=== PATIENT | female | born 1950 | race Caucasian/White ===

== ENCOUNTER → 2016-12-08 | Outpatient (CLI) | payer BC ==
[2016-12-08 13:25] LABS: ESTIMATED AVERAGE GLUCOSE 134 mg/dl; HA1C FLAG Normal (Normal)
[2016-12-08 13:32] LABS: ALT/SGPT 23 U/L (12-78); AST/SGOT 15 U/L (15-37); BLOOD UREA NITROGEN 16 mg/dl (7-18); BUN/CREATININE RATIO 22.4 (10-20); CALCIUM 10.5 mg/dl (8.5-10.1); CARBON DIOXIDE 31 mmol/L (21-32); CHLORIDE 107 mmol/L (98-107); CHOLESTEROL 207 mg/dl (0-200); CREATININE 0.73 mg/dl (0.60-1.20); GLUCOSE 102 mg/dl (70-99); POTASSIUM 4.3 mmol/L (3.5-5.1); SODIUM 142 mmol/L (136-145)
[2016-12-08 13:34] LABS: ALB/GLOB RATIO 0.9 (0.9-2); ALKALINE PHOSPHATASE 79 U/L (45-117); CHOLESTEROL/HDL RATIO 4.1; HDL CHOLESTEROL 51 mg/dl; LDL CHOLESTEROL CALCULATED 138 mg/dl; TRIGLYCERIDES 89 mg/dl (0-150); VERY LOW DENSITY LIPOPROT CALC 18 mg/dl
== END | disposition home or self-care (01) ==
LOC: C.LABMFLN 07:30
PROVIDERS: ATTEND Family Medicine
DX: E78.00 Pure hypercholesterolemia, unspecified (principal); E11.9 Type 2 diabetes mellitus without complications

== ENCOUNTER → 2016-12-15 | Outpatient (CLI) | payer BC | END | disposition home or self-care (01) | LOC: C.PAPS 14:27 | PROVIDERS: ATTEND Family Medicine | DX: Z00.00 Encounter for general adult medical examination without abnormal findings (principal) ==

== ENCOUNTER → 2017-05-13 | Outpatient (CLI) | payer BC ==
[2017-05-13 13:59] LABS: ESTIMATED AVERAGE GLUCOSE 134 mg/dl; HA1C FLAG Normal (Normal)
[2017-05-13 14:04] LABS: RATIO 76.3 mcg/mg (0-30.0)
[2017-05-13 14:15] LABS: ALT/SGPT 21 U/L (12-78); BLOOD UREA NITROGEN 21 mg/dl (7-18); BUN/CREATININE RATIO 26.9 (10-20); CALCIUM 10.2 mg/dl (8.5-10.1); CARBON DIOXIDE 27 mmol/L (21-32); CHLORIDE 107 mmol/L (98-107); CHOLESTEROL 195 mg/dl (0-200); CREATININE 0.78 mg/dl (0.60-1.20); GLUCOSE 108 mg/dl (70-99); POTASSIUM 4.1 mmol/L (3.5-5.1); SODIUM 140 mmol/L (136-145)
[2017-05-13 14:18] LABS: ALB/GLOB RATIO 0.9 (0.9-2); ALKALINE PHOSPHATASE 95 U/L (45-117); AST/SGOT 22 U/L (15-37); HDL CHOLESTEROL 49 mg/dl; LDL CHOLESTEROL CALCULATED 129 mg/dl; TRIGLYCERIDES 83 mg/dl (0-150); VERY LOW DENSITY LIPOPROT CALC 17 mg/dl
== END | disposition home or self-care (01) ==
LOC: C.LABMFLN 07:53
PROVIDERS: ATTEND Family Medicine
DX: I10 Essential (primary) hypertension (principal); E78.00 Pure hypercholesterolemia, unspecified; E11.9 Type 2 diabetes mellitus without complications

== ENCOUNTER → 2017-06-03 | Outpatient (CLI) | payer BC ==
[2017-06-03 18:17] LABS: CREATININE 0.75 mg/dl (0.60-1.20); POTASSIUM 3.9 mmol/L (3.5-5.1)
== END | disposition home or self-care (01) ==
LOC: C.LABMFLN 11:37
PROVIDERS: ATTEND Family Medicine
DX: I10 Essential (primary) hypertension (principal)

== ENCOUNTER → 2017-06-16 | Outpatient (CLI) | payer BC ==
[2017-06-16 18:21] LABS: BLOOD UREA NITROGEN 18 mg/dl (7-18); BUN/CREATININE RATIO 21.2 (10-20); CALCIUM 10.5 mg/dl (8.5-10.1); CARBON DIOXIDE 29 mmol/L (21-32); CHLORIDE 104 mmol/L (98-107); CREATININE 0.86 mg/dl (0.60-1.20); GLUCOSE 128 mg/dl (70-99); POTASSIUM 3.9 mmol/L (3.5-5.1); SODIUM 139 mmol/L (136-145)
[2017-06-16 18:24] LABS: BASO % 0.5 %; BASO ABS # 0.05 K/uL (0-0.2); COMPLETE YES; EOS % 4.1 %; HEMATOCRIT 42.4 % (37-47); IG% 0.3 %; LYMPH % 19.5 %; LYMPH ABS # 2.02 K/uL (1.2-3.4); MEAN CELL VOLUME 96.1 fL (80-100); MEAN CORPUSCULAR HEMOGLOBIN 31.3 pg (25-34); MEAN CORPUSCULAR HGB CONC 32.5 g/dl (32-36); MEAN PLATELET VOLUME 9.8 fL (7.4-10.4); MONO % 6.9 %; NEUT % 68.7 %; PLATELET COUNT 328 K/uL (130-400); RED BLOOD COUNT 4.41 M/uL (4.2-5.4); WHITE BLOOD COUNT 10.38 K/uL (4.8-10.8)
== END | disposition home or self-care (01) ==
LOC: C.LABMFLN 14:39
PROVIDERS: ATTEND Family Medicine
DX: R23.8 Other skin changes (principal); H53.8 Other visual disturbances

== ENCOUNTER → 2017-11-09 | Outpatient (CLI) | payer BC ==
[2017-11-09 13:21] LABS: HEMOGLOBIN A1C 6.4 % (4.5-5.6)
[2017-11-09 13:57] LABS: ALBUMIN 3.5 gm/dl (3.4-5.0); ALT/SGPT 23 U/L (12-78); AST/SGOT 19 U/L (15-37); BLOOD UREA NITROGEN 17 mg/dl (7-18); CALCIUM 10.3 mg/dl (8.5-10.1); CARBON DIOXIDE 29 mmol/L (21-32); CREATININE 0.92 mg/dl (0.60-1.20); GLUCOSE 104 mg/dl (70-99); SODIUM 137 mmol/L (136-145)
[2017-11-09 14:02] LABS: ALKALINE PHOSPHATASE 85 U/L (45-117); CHOLESTEROL 191 mg/dl (0-200); LDL CHOLESTEROL CALCULATED 123 mg/dl; TOTAL PROTEIN 8.1 gm/dl (6.4-8.2)
== END | disposition home or self-care (01) ==
LOC: C.LABMFLN 08:15
PROVIDERS: ATTEND Family Medicine
DX: I10 Essential (primary) hypertension (principal); E78.00 Pure hypercholesterolemia, unspecified; E11.21 Type 2 diabetes mellitus with diabetic nephropathy

== ENCOUNTER 2022-01-21 18:43 | Inpatient (IN) ==
[2022-01-21] MEDS ORDERED: methylPREDNISolone 125 MG/2 ML VIAL IV STA (18:55)
[2022-01-21] MEDS ORDERED: ONDANSETRON INJ 2 MG/ML 2 ML VIAL IV STA (18:55)
[2022-01-21] MEDS ORDERED: ALBUT/IPRATROP 3MG/0.5MG NEB 3 ML VIAL NEB STA (18:55)
--- NOTE | 2022-01-21 19:04 | Emergency Department Note ---
Impression & Plan SOB (shortness of breath), Weakness, Pneumonia, Hypomagnesemia ED Provider Note NAME: CAROL VERGARA AGE: 71 SEX: F : 1950 ARRIVES VIA: Walk-In INFORMANT: [Patient] ED PROVIDER(S): [Vincenzo Gerard MD] CHIEF COMPLAINT: Short of breath, weak, nausea. HISTORY OF PRESENT ILLNESS: Patient is a 71-year-old female presents to the ER with weakness, nausea and increasing shortness of breath. She feels awful. The patient states that on 02 January, around 19 days ago, she saw her doctor's office and was given a prednisone taper and some antibiotic. She states that she is now on prednisone 10 mg daily. She has been doing this now for the last 5 days. The patient states she had increasing nausea, weakness, cough and shortness of breath. She cannot even function anymore. She always wears about 4 L of O2 and this is not enough oxygen anymore. She states that she had some loose stools, she has not had fever. No vomiting. No abdominal pain. REVIEW OF SYSTEMS: See HPI for pertinent positives and negatives. A total of ten systems were reviewed and were otherwise negative. PMHx/PSHx: See Below SOCIAL HISTORY: See Below. PHYSICAL EXAM: GENERAL: Patient is in mild distress, appears short of breath. HEENT: No acute trauma, normocephalic atraumatic, mucous membranes moist, no nasal congestion, no scleral icterus. NECK: No stridor, no adenopathy, no meningismus, trachea is midline. LUNGS: A few scattered wheezes heard, crackles at both bases, increased respiratory rate. Mild respiratory distress noted. HEART: Tachycardic, irregular rhythm, no obvious murmur. ABDOMEN: Soft, nontender, bowel sounds positive, no peritonitis. EXTREMITIES: No cyanosis or edema, full range of motion of all the joints without pain or difficulty, no signs for acute trauma. NEUROLOGIC: Oriented x 3, no acute motor or sensory deficits, no focal weakness. SKIN: No rash, no jaundice, no diaphoresis. DIFFERENTIAL DIAGNOSIS: Infection, dehydration, UTI, COVID-19, influenza, metabolic abnormality, hypo/hyperglycemia, electrolyte disturbance, anemia, hypoxia, cardiac sources, pneumonia, bronchitis, fluid overload, as well as other pathologies. EMERGENCY DEPARTMENT COURSE/PROCEDURES: ECG: Indication was shortness of breath. The ECG shows a sinus tachycardia with a rate of 117. There is some nonspecific ST change. There is no ST elevation. No PVCs. The QTC is 435 Continuous Cardiac Monitoring: An order was placed for continuous cardiac monitoring. The monitor shows a rate of 118 with has tachycardia. Critical Care Note: I have personally spent 39 minutes of critical care time in the direct management of this patient. This includes bedside care, interpretation of diagnostic studies, and testing, discussion with consultants, patient, and family members, and other required patient management activities. This 39 minutes is in excess of all separately billable procedures. MEDICAL DECISION MAKING: There is a mild leukocytosis, this could be consistent with infection. No worrisome anemia. Platelet count slightly elevated. Renal panel testing showed a slight elevation to the creatinine, this could be consistent with some dehydration. Magnesium was quite low at 1.2. Lactic acid level was elevated consistent with infection and/or dehydration. BNP was not elevated making fluid overload less likely. Procalcitonin level was normal. The patient appeared to be in a euthyroid state. No worrisome liver enzyme elevation. ECG showed a sinus tachycardia without obvious ischemia. Cardiac enzyme testing x1 was slightly elevated. This troponin elevation could be from mismatch or potential ly ischemia. Respiratory bio fire testing was completely negative. Chest x-ray shows a bilateral lower lung pneumonia. The patient was given IV saline, 500 cc. She received IV Zofran and IV Solu-M edrol. She was given IV magnesium and IV cefepime. She was given a DuoNeb. The patient presents short of breath. She appears to have pneumonia. She was in some mild distress upon my initial assessment but did well with treatment here in the ED. I spoke with the patient and case management. The patient is in need of a hospital stay. The on-call hospitalist was consulted. Past Med/Surg History Medical History 2018 novel coronavirus not detected Abnormal CT scan, chest Acute kidney injury Allergic rhinitis Anxiety Asthma HAS NOT USED RESCUE INHALER SINCE APRIL 2018 Benign essential hypertension Cardiac murmur ? 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 NO sleep apnea. 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 History of carpal tunnel release RT History of colonoscopy History of esophagogastroduodenoscopy (EGD) History of hernia repair UMBILICAL History of laparoscopic cholecystectomy History of tooth extraction Family History Father Heart disease Hypertension Sister Cancer Social History Smoking Status: Never smoker Second Hand Exposure: No; Hx Alcohol Use: No Hx Substance Use: No Preferred Language: Luxembourgish Communication Ability: Effective Visual Impairment: No Limitations Hearing Ability: Normal Perl Developer Required: No Beliefs That Will Affect Care: None marital status: Current Living Situation: Spouse Current Living Situation Comment: Home with in a correction community current occupational status: retired How many Children do You have: 2 Other Information That Helps Us Care for You: No Feels Safe at Home: Yes Safety Concerns: Feels Safe At This Time caffeine: Yes Dental Care, Regularly: Yes Physical Activity Frequency: 1-2 Times per Week Seatbelt Use: always Sunscreen Use: Yes Assistive Devices: Glasses, Nebulizer, Oxygen - Continuous and Wheelchair Allergies Allergies Allergy/AdvReac Type Severity Reaction Status Date / Time Sulfa (Sulfonamide Allergy Intermediate EYES Verified 01/21/22 19:05 Antibiotics) SWELLING/ITCHING Penicillins Allergy Mild Rash Verified 01/21/22 19:05 Home Meds Home Medications Medication Instructions Recorded Confirmed ascorbate calcium (vitamin C) 500 500 mg PO DAILY 05/02/19 01/21/22 mg tablet cholecalciferol (vitamin D3) 25 2,000 units PO DAILY cap 09/08/19 01/21/22 mcg (1,000 unit) capsule Portable Oxygen #1 ea 10/03/19 01/21/22 prednisone 10 mg tablet 10 mg PO DAILY 01/21/22 01/21/22 Previous Rx's Medication Instructions Recorded aspirin 81 mg tablet,delayed 81 mg PO DAILY #90 tab 04/28/19 release (David Low Dose Aspirin) losartan 100 mg tablet 100 mg PO DAILY #90 tab 12/24/20 albuterol sulfate 2.5 mg INH Q4H PRN #90 ml 01/02/21 rosuvastatin 40 mg tablet (Crestor) 40 mg PO QPM #90 tab 01/28/21 loratadine 10 mg tablet 10 mg PO DAILY #30 tab 02/11/21 albuterol sulfate 90 mcg/actuation 2 inh INHALATION Q4H PRN #1 ea MDD 02/25/21 breath activated powder inhaler 12 (ProAir RespiClick) omeprazole 20 mg capsule,delayed 20 mg PO QAM #90 cap 04/11/21 release amlodipine 5 mg tablet 5 mg PO DAILY #90 tab 08/20/21 benzonatate 100 mg capsule 100 mg PO TID PRN #30 cap 10/07/21 nystatin 100,000 unit/gram topical 1 applic TOPICAL BID #60 g 10/07/21 powder fluticasone furoate 100 1 inh INHALATION DAILY #60 ea 10/16/21 mcg-vilanterol 25 mcg/dose inhalation powder (Breo Ellipta) metoprolol succinate 50 mg 50 mg PO DAILY #90 tab 10/27/21 tablet,extended release 24 hr metformin 500 mg tablet 500 mg PO .COMPLEX #270 tab 01/02/22 venlafaxine 75 mg capsule,extended 75 mg PO HS #90 cap 01/19/22 release 24 hr (Effexor XR) Results & Data (ED) Vital Signs Vital Signs - 24 hr 01/21/22 18:44 01/21/22 19:11 01/21/22 19:24 Temperature 37.1 C Temperature Source Temporal Artery Scan Pulse Rate 118 H Pulse Rate [Left Apical] 117 H Pulse Rhythm [Left Apical] Regular Pulse Strength [Left Apical] Normal Respiratory Rate 20 36 H Respiratory Effort / Characteristics Labored Spontaneous Labored Short of Breath Respiratory Depth Normal Respiratory Pattern Tachypnea Tachypnea Blood Pressure 103/62 Blood Pressure [Left Arm] 97/70 L Blood Pressure Mean 75 Blood Pressure Mean [Left Arm] 79 Blood Pressure Position Sitting Blood Pressure Position [Left Arm] Lying Pulse Oximetry 88 L 96 95 Oxygen Delivery Method Nasal Cannula Nasal Cannula Nasal Cannula Oxygen Flow Rate 4 4 4 Sepsis Recent Fever Within 48 Hours No Sepsis New/Unexplained Change in Mental Status No Sepsis Action Taken by Nursing No Action Required 01/21/22 20:15 01/21/22 20:58 Temperature Temperature Source Pulse Rate Pulse Rate [Left Apical] 113 H 109 H Pulse Rhythm [Left Apical] Regular Regular Pulse Strength [Left Apical] Normal Normal Respiratory Rate 24 24 Respiratory Effort / Characteristics Spontaneous Non-Labored Spontaneous Respiratory Depth Normal Normal Respiratory Pattern Regular Blood Pressure Blood Pressure [Left Arm] 125/83 125/83 Blood Pressure Mean Blood Pressure Mean [Left Arm] 97 97 Blood Pressure Position Blood Pressure Position [Left Arm] Lying Pulse Oximetry 95 95 Oxygen Delivery Method Nasal Cannula Nasal Cannula Oxygen Flow Rate 4 4 Sepsis Recent Fever Within 48 Hours Sepsis New/Unexplained Change in Mental Status Sepsis Action Taken by Long Term Medications Current Medication List: was personally reviewed by me Laboratory Data Attestation: I reviewed the patient's lab results. Result diagrams: 01/21/22 19:18 01/21/22 19:18 Lab Results 01/21/22 01/21/22 01/21/22 Range/Units 19:18 19:18 19:18 WBC 13.24 H (4.8-10.8) K/uL RBC 3.89 L (4.2-5.4) M/uL Hgb 11.8 L (12.0-16.0) g/dL Hct 36.1 L (37-47) % MCV 92.8 (80-100) fL MCH 30.3 (25-34) pg MCHC 32.7 (32-36) g/dL RDW Std Deviation 50.3 H (36.4-46.3) fL RDW Coeff of Amparo 14.8 H (11.5-14.5) % Plt Count 419 H (130-400) K/uL MPV 10.2 (7.4-10.4) fL Immature Gran % (Auto) 0.4 % Neut % (Auto) 84.4 % Lymph % (Auto) 7.3 % [place] % (Auto) 7.3 % Eos % (Auto) 0.5 % Baso % (Auto) 0.1 % Neut # (Auto) 11.18 H (1.4-6.5) K/uL Lymph # (Auto) 0.97 L (1.2-3.4) K/uL [place] # (Auto) 0.97 H (0.11-0.59) K/uL Eos # (Auto) 0.06 (0-0.5) K/uL Baso # (Auto) 0.01 (0-0.2) K/uL Immature Gran # (Auto) 0.05 H (0.00-0.02) K/uL Sodium 133 L (136-145) mmol/L Potassium 3.4 L (3.5-5.1) mmol/L Chloride 94 L (98-107) mmol/L Carbon Dioxide 27 (21-32) mmol/L Anion Gap 12 H (3-11) BUN 20 (6-23) mg/dl Creatinine 1.44 H (0.6-1.2) mg/dl Est Cr Clr Drug Dosing Not Reportable Est GFR ( Amer) 41.7 ml/min Est GFR (Non-Af Amer) 35.9 ml/min BUN/Creatinine Ratio 13.9 (10-20) Glucose 227 H (70-99(Fasting)) mg/dl Lactate 2.3 H* (0.4-2.0) mmol/L Calcium 10.4 H (8.5-10.1) mg/dl Magnesium 1.2 L (1.7-2.4) mg/dl Total Bilirubin 0.6 (0.2-1.0) mg/dl AST 18 (13-39) U/L ALT 25 (7-52) U/L Alkaline Phosphatase 65 (34-104) U/L Troponin I High Sens 14.8 H (0-14) pg/ml B-Natriuretic Peptide (0-100) pg/ml Total Protein 7.4 (6.0-8.3) gm/dl Albumin 3.4 (3.4-5.0) gm/dl Globulin 4.0 (2.5-4.0) gm/dl Albumin/Globulin Ratio 0.9 (0.9-2) Procalcitonin (0-0.5) ng/ml TSH (0.300-4.500) uIu/ml Adenovirus (PCR) (NotDetected) B. pertussis DNA (PCR) (NotDetected) B.parapertussis DNA PCR (NotDetected) C. pneumoniae DNA (PCR) (NotDetected) Coronavirus OC43 (PCR) (NotDetected) Coronavirus HKU1 (PCR) (NotDetected) Coronavirus 229E (PCR) (NotDetected) SARS-CoV-2 (PCR) (NotDetected) Coronavirus NL63 (PCR) (NotDetected) Human Metapneumovir PCR (NotDetected) Influenza Type A (PCR) (NotDetected) Influenza Type B (PCR) (NotDetected) M. pneumoniae (PCR) (NotDetected) Parainfluenza 1 (PCR) (NotDetected) Parainfluenza 2 (PCR) (NotDetected) Parainfluenza 3 (PCR) (NotDetected) Parainfluenza 4 (PCR) (NotDetected) RSV (PCR) (NotDetected) Entero/Rhino (PCR) (NotDetected) 01/21/22 01/21/22 01/21/22 Range/Units 19:18 19:18 19:18 WBC (4.8-10.8) K/uL RBC (4.2-5.4) M/uL Hgb (12.0-16.0) g/dL Hct (37-47) % MCV (80-100) fL MCH (25-34) pg MCHC (32-36) g/dL RDW Std Deviation (36.4-46.3) fL RDW Coeff of Amparo (11.5-14.5) % Plt Count (130-400) K/uL MPV (7.4-10.4) fL Immature Gran % (Auto) % Neut % (Auto) % Lymph % (Auto) % [place] % (Auto) % Eos % (Auto) % Baso % (Auto) % Neut # (Auto) (1.4-6.5) K/uL Lymph # (Auto) (1.2-3.4) K/uL [place] # (Auto) (0.11-0.59) K/uL Eos # (Auto) (0-0.5) K/uL Baso # (Auto) (0-0.2) K/uL Immature Gran # (Auto) (0.00-0.02) K/uL Sodium (136-145) mmol/L Potassium (3.5-5.1) mmol/L Chloride (98-107) mmol/L Carbon Dioxide (21-32) mmol/L Anion Gap (3-11) BUN (6-23) mg/dl Creatinine (0.6-1.2) mg/dl Est Cr Clr Drug Dosing Est GFR ( Amer) ml/min Est GFR (Non-Af Amer) ml/min BUN/Creatinine Ratio (10-20) Glucose (70-99(Fasting)) mg/dl Lactate (0.4-2.0) mmol/L Calcium (8.5-10.1) mg/dl Magnesium (1.7-2.4) mg/dl Total Bilirubin (0.2-1.0) mg/dl AST (13-39) U/L ALT (7-52) U/L Alkaline Phosphatase (34-104) U/L Troponin I High Sens (0-14) pg/ml B-Natriuretic Peptide (0-100) pg/ml Total Protein (6.0-8.3) gm/dl Albumin (3.4-5.0) gm/dl Globulin (2.5-4.0) gm/dl Albumin/Globulin Ratio (0.9-2) Procalcitonin 0.35 (0-0.5) ng/ml TSH 1.744 (0.300-4.500) uIu/ml Adenovirus (PCR) Not Detected (NotDetected) B. pertussis DNA (PCR) Not Detected (NotDetected) B.parapertussis DNA PCR Not Detected (NotDetected) C. pneumoniae DNA (PCR) Not Detected (NotDetected) Coronavirus OC43 (PCR) Not Detected (NotDetected) Coronavirus HKU1 (PCR) Not Detected (NotDetected) Coronavirus 229E (PCR) Not Detected (NotDetected) SARS-CoV-2 (PCR) Not Detected (NotDetected) Coronavirus NL63 (PCR) Not Detected (NotDetected) Human Metapneumovir PCR Not Detected (NotDetected) Influenza Type A (PCR) Not Detected (NotDetected) Influenza Type B (PCR) Not Detected (NotDetected) M. pneumoniae (PCR) Not Detected (NotDetected) Parainfluenza 1 (PCR) Not Detected (NotDetected) Parainfluenza 2 (PCR) Not Detected (NotDetected) Parainfluenza 3 (PCR) Not Detected (NotDetected) Parainfluenza 4 (PCR) Not Detected (NotDetected) RSV (PCR) Not Detected (NotDetected) Entero/Rhino (PCR) Not Detected (NotDetected) 01/21/22 01/21/22 Range/Units 19:52 21:19 WBC (4.8-10.8) K/uL RBC (4.2-5.4) M/uL Hgb (12.0-16.0) g/dL Hct (37-47) % MCV (80-100) fL MCH (25-34) pg MCHC (32-36) g/dL RDW Std Deviation (36.4-46.3) fL RDW Coeff of Amparo (11.5-14.5) % Plt Count (130-400) K/uL MPV (7.4-10.4) fL Immature Gran % (Auto) % Neut % (Auto) % Lymph % (Auto) % [place] % (Auto) % Eos % (Auto) % Baso % (Auto) % Neut # (Auto) (1.4-6.5) K/uL Lymph # (Auto) (1.2-3.4) K/uL [place] # (Auto) (0.11-0.59) K/uL Eos # (Auto) (0-0.5) K/uL Baso # (Auto) (0-0.2) K/uL Immature Gran # (Auto) (0.00-0.02) K/uL Sodium (136-145) mmol/L Potassium (3.5-5.1) mmol/L Chloride (98-107) mmol/L Carbon Dioxide (21-32) mmol/L Anion Gap (3-11) BUN (6-23) mg/dl Creatinine (0.6-1.2) mg/dl Est Cr Clr Drug Dosing Est GFR ( Amer) ml/min Est GFR (Non-Af Amer) ml/min BUN/Creatinine Ratio (10-20) Glucose (70-99(Fasting)) mg/dl Lactate 1.4 (0.4-2.0) mmol/L Calcium (8.5-10.1) mg/dl Magnesium (1.7-2.4) mg/dl Total Bilirubin (0.2-1.0) mg/dl AST (13-39) U/L ALT (7-52) U/L Alkaline Phosphatase (34-104) U/L Troponin I High Sens (0-14) pg/ml B-Natriuretic Peptide 59 (0-100) pg/ml Total Protein (6.0-8.3) gm/dl Albumin (3.4-5.0) gm/dl Globulin (2.5-4.0) gm/dl Albumin/Globulin Ratio (0.9-2) Procalcitonin (0-0.5) ng/ml TSH (0.300-4.500) uIu/ml Adenovirus (PCR) (NotDetected) B. pertussis DNA (PCR) (NotDetected) B.parapertussis DNA PCR (NotDetected) C. pneumoniae DNA (PCR) (NotDetected) Coronavirus OC43 (PCR) (NotDetected) Coronavirus HKU1 (PCR) (NotDetected) Coronavirus 229E (PCR) (NotDetected) SARS-CoV-2 (PCR) (NotDetected) Coronavirus NL63 (PCR) (NotDetected) Human Metapneumovir PCR (NotDetected) Influenza Type A (PCR) (NotDetected) Influenza Type B (PCR) (NotDetected) M. pneumoniae (PCR) (NotDetected) Parainfluenza 1 (PCR) (NotDetected) Parainfluenza 2 (PCR) (NotDetected) Parainfluenza 3 (PCR) (NotDetected) Parainfluenza 4 (PCR) (NotDetected) RSV (PCR) (NotDetected) Entero/Rhino (PCR) (NotDetected) Administered Medications Albuterol (Albut/Ipratrop 3mg/0.5mg Neb 3 Ml Vial) 3 ml NEB Q4R CASEY; Protocol Stop: 02/20/22 22:59 Last Admin: 01/21/22 22:50 Dose: 3 ml Documented by: [id number] Sodium Chloride (Nss 1000ml) 1,000 mls @ 80 mls/hr IV .[id number] CASEY Stop: 02/20/22 23:44 Last Admin: 01/22/22 00:00 Dose: 80 mls/hr Documented by: [id number] Insulin Aspart (Insulin Aspart Per Unit) 0 units SC ACHS CASEY Stop: 02/20/22 22:44 Last Admin: 01/21/22 23:11 Dose: 6 units Documented by: [id number] Cosigned by: [id number] Discontinued Medications Albuterol (Albut/Ipratrop 3mg/0.5mg Neb 3 Ml Vial) 3 ml NEB NOW STA; Protocol Stop: 01/21/22 18:56 Last Admin: 01/21/22 19:12 Dose: 3 ml Documented by: [id number] Sodium Chloride (Nss 1000ml) 500 mls @ 999 mls/hr IV .Q31M ONE Stop: 01/21/22 20:41 Last Infusion: 01/21/22 20:59 Dose: 0 mls/hr Documented by: [id number] Admin: 01/21/22 20:16 Dose: 999 mls/hr Documented by: [id number] Cefepime HCl (Maxipime) 2,000 mg in 20 mls @ 5 mls/min IV NOW STA; Protocol Stop: 01/21/22 20:14 Last Admin: 01/21/22 20:16 Dose: 5 mls/min Documented by: [id number] Magnesium Sulfate/Dextrose (Magnesium Sulfate / D5w) 1 gm in 100 mls @ 100 mls/hr IV Q1H CASEY Stop: 01/21/22 22:46 Last Infusion: 01/22/22 00:00 Dose: 0 mls/hr Documented by: [id number] Admin: 01/21/22 22:58 Dose: 100 mls/hr Documented by: [id number] Infusion: 01/21/22 22:19 Dose: 100 mls/hr Documented by: [id number] Admin: 01/21/22 21:19 Dose: 100 mls/hr Documented by: [id number] Insulin Glargine (Lantus Per Unit Charge) 20 units SQ ONE ONE Stop: 01/21/22 23:01 Last Admin: 01/21/22 23:11 Dose: 20 units Documented by: [id number] Cosigned by: [id number] Methylprednisolone (Methylprednisolone 125 Mg/2 Ml Vial) 60 mg IV NOW STA Stop: 01/21/22 18:56 Last Admin: 01/21/22 19:12 Dose: 60 mg Documented by: [id number] Ondansetron HCl (Ondansetron Inj 2 Mg/Ml 2 Ml Vial) 4 mg IV NOW STA Stop: 01/21/22 18:56 Last Admin: 01/21/22 19:12 Dose: 4 mg Documented by: [id number] Imaging Data Radiologist's Impression: Chest X-Ray 01/21/22 18:55 XR chest 1V portable HISTORY: 71 years-old Female weakness acute weakness COMPARISON: Chest CT 09/19/2021 TECHNIQUE: Portable AP view of the chest FINDINGS: The cardiac silhouette is enlarged. No pneumothorax, large pleural effusion or overt pulmonary edema. Chronic interstitial lung disease. Evidence of pulmonary arterial hypertension. Mild bibasilar consolidative opacities. Degenerative changes of the shoulders and spine. IMPRESSION: 1. Cardiomegaly with chronic interstitial lung disease. 2. Bibasilar consolidative opacities may be secondary to atelectasis/scarring however an underlying pneumonitis could appear similarly. ACT 112: Negative or not required by law. The above report was generated using voice recognition software. It may contain grammatical, syntax or spelling errors. Electronically signed by: Jp Greenwood M.D. 01/21/2022 7:13 PM Discharge Plan Visit Data Chief Complaint: Nausea Stated Complaint: NAUSEA ED Provider: Vincenzo Gerard Discharge Problem: SOB (shortness of breath), Weakness, Pneumonia, Hypomagnesemia Patient Disposition: Admitted As Inpatient Condition: Fair Discharge Instructions Interventions: ED Discharge Assessment Last Done: 01/21/22 21:54
--- NOTE | 2022-01-21 19:16 | XRay Report ---
XR chest 1V portable HISTORY: 71 years-old Female weakness acute weakness COMPARISON: Chest CT 09/19/2021 TECHNIQUE: Portable AP view of the chest FINDINGS: The cardiac silhouette is enlarged. No pneumothorax, large pleural effusion or overt pulmonary edema. Chronic interstitial lung disease. Evidence of pulmonary arterial hypertension. Mild bibasilar conso lidative opacities. Degenerative changes of the shoulders and spine. IMPRESSION: 1. Cardiomegaly with chronic interstitial lung disease. 2. Bibasilar consolidative opacities may be secondary to atelectasis/scarring however an underlying p neumonitis could appear similarly. ACT 112: Negative or not required by law. The above report was generated using voice recognition software. It may contain grammatical, syntax o r spelling errors. Electronically signed by: Jp Greenwood M.D. 01/21/2022 7:13 PM
[2022-01-21 20:10] LABS: Basophils # (auto) 0.01 K/uL (0-0.2); Basophils % (auto) 0.1 %; Eosinophils # (auto) 0.06 K/uL (0-0.5); Eosinophils % (auto) 0.5 %; Hematocrit (blood only) 36.1 % (37-47); Hemoglobin 11.8 g/dL (12.0-16.0); Immature Granulocytes # (auto) 0.05 K/uL (0.00-0.02); Immature Granulocytes % (auto) 0.4 %; Lymphocytes # (auto) 0.97 K/uL (1.2-3.4); Lymphocytes % (auto) 7.3 %; Mean Corpuscular Hemoglobin 30.3 pg (25-34); Mean Corpuscular Hgb Conc 32.7 g/dL (32-36); Mean Corpuscular Volume 92.8 fL (80-100); Mean Platelet Volume 10.2 fL (7.4-10.4); Monocytes # (auto) 0.97 K/uL (0.11-0.59); Monocytes % (auto) 7.3 %; Neutrophils # (auto) 11.18 K/uL (1.4-6.5); Neutrophils % (auto) 84.4 %; Platelet Count 419 K/uL (130-400); RDW Coefficient of Variation 14.8 % (11.5-14.5); RDW Standard Deviation 50.3 fL (36.4-46.3); Red Blood Count 3.89 M/uL (4.2-5.4); White Blood Count 13.24 K/uL (4.8-10.8)
[2022-01-21] MEDS ORDERED: SODIUM CHLORIDE 0.9% 1000ML 500 ML IV ONE (20:11)
[2022-01-21] MEDS ORDERED: CEFEPIME 2,000 MG/20 ML VIAL IV STA (20:11)
[2022-01-21 20:29] LABS: Troponin I High Sensitivity 14.8 pg/ml (0-14)
[2022-01-21 20:32] LABS: Alanine Aminotransferase 25 U/L (7-52); Albumin Globulin Ratio 0.9 (0.9-2); Albumin Level 3.4 gm/dl (3.4-5.0); Alkaline Phosphatase 65 U/L (34-104); Anion Gap 12 (3-11); Aspartate Aminotransferase 18 U/L (13-39); BUN Creatinine Ratio 13.9 (10-20); Bilirubin,Total 0.6 mg/dl (0.2-1.0); Blood Urea Nitrogen 20 mg/dl (6-23); Calcium 10.4 mg/dl (8.5-10.1); Carbon Dioxide 27 mmol/L (21-32); Chloride 94 mmol/L (98-107); Est GFR (African American) 41.7 ml/min; Est GFR (Non-African American) 35.9 ml/min; Glucose 227 mg/dl (70-99(Fasting)); Magnesium 1.2 mg/dl (1.7-2.4); Potassium 3.4 mmol/L (3.5-5.1); Sodium 133 mmol/L (136-145); Total Protein 7.4 gm/dl (6.0-8.3)
[2022-01-21 20:36] LABS: Adenovirus PCR Not Detected (NotDetected); Bordetella parapertussis PCR Not Detected (NotDetected); Bordetella pertussis PCR Not Detected (NotDetected); Chlamydia pneumoniae PCR Not Detected (NotDetected); Coronavirus 229E PCR Not Detected (NotDetected); Coronavirus CoV-2 (COVID19)PCR Not Detected (NotDetected); Coronavirus HKU1 PCR Not Detected (NotDetected); Coronavirus NL63 PCR Not Detected (NotDetected); Coronavirus OC43PCR Not Detected (NotDetected); Human Metapneumovirus PCR Not Detected (NotDetected); Influenza A PCR Not Detected (NotDetected); Influenza B PCR Not Detected (NotDetected); Mycoplasma pneumoniae PCR Not Detected (NotDetected); Parainfluenza Virus 1 PCR Not Detected (NotDetected); Parainfluenza Virus 2 PCR Not Detected (NotDetected); Parainfluenza Virus 3 PCR Not Detected (NotDetected); Parainfluenza Virus 4 PCR Not Detected (NotDetected); Respiratory Syncytial VirusPCR Not Detected (NotDetected); Rhinovirus/Enterovirus PCR Not Detected (NotDetected)
[2022-01-21] MEDS: MAGNESIUM SULFATE / D5W 1 GM/100 ML BAG IV SCH ×2 (21:19→22:58)
[2022-01-21] MEDS ORDERED: CARBOHYDRATES FOR HYPOGLYCEMIA PO PRN (22:24)
[2022-01-21] MEDS ORDERED: ONDANSETRON INJ 2 MG/ML 2 ML VIAL IV PRN (22:24)
[2022-01-21] MEDS ORDERED: DEXTROSE 50% 50 ML SYRINGE IV PRN (22:24)
[2022-01-21] MEDS ORDERED: GLUCOSE 40% GEL 15 GM TUBE PO PRN (22:24)
[2022-01-21] MEDS ORDERED: GLUCAGON FOR INJ 1 MG VIAL SQ PRN (22:24)
[2022-01-21] MEDS ORDERED: GLUCOSE 10 TAB/TUBE PO PRN (22:24)
[2022-01-21] MEDS ORDERED: PHARMACY GLYCEMIC MGMT CONSULT PRN (22:24)
[2022-01-21] MEDS ORDERED: BENZONATATE 100 MG CAPSULE PO PRN (22:24)
[2022-01-21] MEDS ORDERED: Patient's HEIGHT &/or WEIGHT Needed STA (22:32)
[2022-01-21] MEDS: ALBUT/IPRATROP 3MG/0.5MG NEB 3 ML VIAL NEB SCH (22:50)
[2022-01-21] MEDS ORDERED: LANTUS PER UNIT CHARGE SQ ONE (23:00)
[2022-01-21] MEDS: INSULIN ASPART PER UNIT SC SCH (23:11)
--- NOTE | 2022-01-21 23:36 | History & Physical Report ---
Date of Service January 21, 2022 Assessment & Plan (1) Interstitial lung disease: Plan: ILD flare with some concern for a bacterial process given the new productive sputum. At baseline, has chronic hypoxic respiratory failure and is on 4L NC at home. Procalcitonin is only 0.35. MRSA swab negative. - Solu-Medrol 40 mg IV BID - Continue cefepime started in the ED (penicillin allergy, but tolerated it ok in the ER) - Sputum culture ordered - DuoNebs standing and PRN - Cough suppressant PRN - CT chest (had planned to get this next Wednesday anyhow per patient) - Pulmonary consulted (2) Acute kidney injury: Plan: Baseline CKD Stage III with Cr ~1.0 - 1.2. Mild CECELIA with Cr 1.45 on admission. - Gentle IV fluids - Hold home losartan - Monitor Cr (3) Type 2 diabetes mellitus with microalbuminuria: Plan: A1c was 7.2% in 09/2021. - Hold metformin - Sliding scale insulin - Repeat A1c in AM - Glycemic pharmacy consulted as high-dose steroids will likely cause blood sugars to jump (4) Hypertension: Plan: BP on the low end in the ER at 95/65. - IV fluid as above - Hold home amlodipine, losartan - Continue metoprolol as she has some sinus tachycardia with the breathing treatments (5) Depression: Plan: - Continue home venlafaxine (6) DVT prophylaxis: Plan: Heparin 5,000 units SQ BID Conditional code - Willing to have 1 round of ACLS (~5 minutes). Does not want breathing tube/ventilator even if it means she passes away. Was willing to try CPAP/BiPap however. present for this discussion. Code status updated. Admission and Anticipated Discharge Date Admission Date: January 21, 2022 History of Present Illness Primary Care Provider: Vincenzo Bill MD 71yo F w/ hx of ILD, HTN, DM who presents with shortness of breath. She has a hx of ILD and follows with Dr. Em. She has been having a tough time with things and reports that she has been short of breath for weeks. She has been following closely with pulmonology and was last seen in October. They were trying to wean her steroids down, and she reports that while her shortness of breath has not changed dramatically in the last few weeks, as they have weaned down her steroids, she has less appetite, less energy, and is just generally feeling worse. She presented today because she finally felt she "couldn't take it" at home with how bad she was feeling. In addition, over the last few days, she has been having a more productive cough which is somewhat abnormal for her. She notes that a few times in the morning, she will get nauseated, cough really hard, and produce some thick, yellowish sputum which is new for her. She denies any fevers/chills, chest pain, abdominal pain, urinary symptoms, rashes, or LE swelling. She notes that she has been having some diarrhea recently. Allergies Allergy/AdvReac Type Severity Reaction Status Date / Time Sulfa (Sulfonamide Allergy Intermediate EYES Verified 01/21/22 19:05 Antibiotics) SWELLING/ITCHING Penicillins Allergy Mild Rash Verified 01/21/22 19:05 Home Medications Medication Instructions Recorded Confirmed Type aspirin 81 mg tablet,delayed 81 mg PO DAILY #90 tab 04/28/19 01/21/22 Rx release (David Low Dose Aspirin) ascorbate calcium (vitamin C) 500 500 mg PO DAILY 05/02/19 01/21/22 History mg tablet cholecalciferol (vitamin D3) 25 2,000 units PO DAILY cap 09/08/19 01/21/22 History mcg (1,000 unit) capsule Portable Oxygen #1 ea 10/03/19 01/21/22 History losartan 100 mg tablet 100 mg PO DAILY #90 tab 12/24/20 01/21/22 Rx albuterol sulfate 2.5 mg INH Q4H PRN #90 ml 01/02/21 01/21/22 Rx rosuvastatin 40 mg tablet (Crestor) 40 mg PO QPM #90 tab 01/28/21 01/21/22 Rx loratadine 10 mg tablet 10 mg PO DAILY #30 tab 02/11/21 01/21/22 Rx albuterol sulfate 90 mcg/actuation 2 inh INHALATION Q4H PRN #1 ea MDD 02/25/21 01/21/22 Rx breath activated powder inhaler 12 (ProAir RespiClick) omeprazole 20 mg capsule,delayed 20 mg PO QAM #90 cap 04/11/21 01/21/22 Rx release amlodipine 5 mg tablet 5 mg PO DAILY #90 tab 08/20/21 01/21/22 Rx benzonatate 100 mg capsule 100 mg PO TID PRN #30 cap 10/07/21 01/21/22 Rx nystatin 100,000 unit/gram topical 1 applic TOPICAL BID #60 g 10/07/21 01/21/22 Rx powder fluticasone furoate 100 1 inh INHALATION DAILY #60 ea 10/16/21 01/21/22 Rx mcg-vilanterol 25 mcg/dose inhalation powder (Breo Ellipta) metoprolol succinate 50 mg 50 mg PO DAILY #90 tab 10/27/21 01/21/22 Rx tablet,extended release 24 hr metformin 500 mg tablet 500 mg PO .COMPLEX #270 tab 01/02/22 01/21/22 Rx venlafaxine 75 mg capsule,extended 75 mg PO HS #90 cap 01/19/22 01/21/22 Rx release 24 hr (Effexor XR) prednisone 10 mg tablet 10 mg PO DAILY 01/21/22 01/21/22 History Past Med/Surg History Medical History 2018 novel coronavirus not detected Abnormal CT scan, chest Acute kidney injury Allergic rhinitis Anxiety Asthma HAS NOT USED RESCUE INHALER SINCE APRIL 2018 Benign essential hypertension Cardiac murmur ? 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 NO sleep apnea. 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 Beliefs That Will Affect Care: None marital status: Current Living Situation: Spouse Current Living Situation Comment: Home with in a alf community current occupational status: retired How many Children do You have: 2 Other Information That Helps Us Care for You: No Feels Safe at Home: Yes Safety Concerns: Feels Safe At This Time caffeine: Yes Dental Care, Regularly: Yes Physical Activity Frequency: 1-2 Times per Week Seatbelt Use: always Sunscreen Use: Yes Assistive Devices: Glasses, Nebulizer, Oxygen - Continuous and Wheelchair Review of Systems Review of Systems: All systems reviewed & are unremarkable except as noted in HPI & below Physical Exam Constitutional: WD/WN, vitals as above Eyes: EOM intact bilaterally; no conjunctival abnormality ENMT: external ear and nose normal, oropharynx normal Neck: trachea midline, no thyromegaly normal visual inspection Respiratory: + labored breathing and + cough; no respiratory distress Auscultation: + crackles and + wheezes Cardiovascular: RRR, no murmur, no edema Gastrointestinal (Abdomen): Inspection/Auscultation: abdomen normal to inspection; abdomen not distended Musculoskeletal: no cyanosis or clubbing, extremities motor strength 5/5 Skin: no rashes, warm and dry Neurologic: moves all extremities and awake Psychiatric: Orientation: alert, oriented to person and cooperative Results & Data Results & Data ([facility]) Vital Signs (Past 12 Hours) Vital Signs Temp Pulse Pulse Resp BP BP Pulse Ox 01/21/22 22:50 111 H 22 91 01/21/22 22:27 36.8 C 117 H 22 94/64 L 92 01/21/22 21:39 106 H 22 117/79 96 01/21/22 20:58 109 H 24 125/83 95 01/21/22 20:15 113 H 24 125/83 95 01/21/22 19:24 95 01/21/22 19:11 117 H 36 H 97/70 L 96 01/21/22 18:44 37.1 C 118 H 20 103/62 88 L Code Status & VTE Plan VTE Prophylaxis Plan VTE Prophylaxis will be ordered: Yes PG Care Time/CCT Total # of Minutes Spent Total Time Spent with Patient: Total time spent is greater than 50% in coordination of care (as documented) at patient's floor/unit and/or counseling patient: Coding Level of Care Code 58244 Initial Inpt Care Lvl 3 Diagnoses Interstitial lung disease J84.9 Type 2 diabetes mellitus with microalbuminuria E11.29; R80.9 Acute kidney injury N17.9 Hypertension I10 Depression F32.9 DVT prophylaxis Z29.9
[2022-01-21] MEDS ORDERED: SODIUM CHLORIDE 0.9% 1000ML 1,000 ML IV SCH (23:45)
[2022-01-22] MEDS: ALBUT/IPRATROP 3MG/0.5MG NEB 3 ML VIAL NEB SCH ×5 (03:53→19:20)
[2022-01-22] MEDS ORDERED: INSULIN ASPART PER UNIT SC SCH ×2 (04:00)
[2022-01-22 07:16] LABS: Hematocrit (blood only) 34.2 % (37-47); Hemoglobin 10.8 g/dL (12.0-16.0); Mean Corpuscular Hemoglobin 29.1 pg (25-34); Mean Corpuscular Hgb Conc 31.6 g/dL (32-36); Mean Corpuscular Volume 92.2 fL (80-100); Mean Platelet Volume 9.9 fL (7.4-10.4); Platelet Count 354 K/uL (130-400); RDW Coefficient of Variation 15.1 % (11.5-14.5); RDW Standard Deviation 51.1 fL (36.4-46.3); Red Blood Count 3.71 M/uL (4.2-5.4); White Blood Count 12.46 K/uL (4.8-10.8)
[2022-01-22 07:37] LABS: BUN Creatinine Ratio 13.6 (10-20); Calcium 9.6 mg/dl (8.5-10.1); Creatinine Clr Calc Pharmacy 40.2 ml/min; Est GFR (African American) 43.1 ml/min; Est GFR (Non-African American) 37.2 ml/min; Magnesium 1.8 mg/dl (1.7-2.4); Potassium 3.6 mmol/L (3.5-5.1)
[2022-01-22] MEDS ORDERED: methylPREDNISolone 40 MG in SYRINGE 0 ML IV SCH ×2 (08:00→14:00)
[2022-01-22] MEDS ORDERED: CEFEPIME 2,000 MG in SYRINGE 0 ML IV SCH (08:00)
[2022-01-22] MEDS: LORATADINE 10 MG TAB PO SCH (08:24)
[2022-01-22] MEDS: FLUTICASONE/VILANTEROL 100/25MCG 14 PUFFS/INHALER INH SCH (08:24)
[2022-01-22] MEDS: METOPROLOL SUCC 50MG EXT REL TAB PO SCH (08:24)
[2022-01-22] MEDS: PANTOprazole 40 MG TAB PO SCH (08:24)
[2022-01-22] MEDS: HEPARIN SOD 5,000 UNIT/0.5 ML VIAL SQ SCH ×3 (08:24→21:05)
[2022-01-22] MEDS: ASPIRIN 81 MG ECTAB PO SCH (08:25)
[2022-01-22] MEDS: INSULIN ASPART PER UNIT SC SCH ×4 (08:27→20:58)
--- NOTE | 2022-01-22 08:39 | CT Scan Report ---
CT SCAN OF THE CHEST WITHOUT IV CONTRAST CLINICAL HISTORY: Cough and dyspnea. Pulmonary fibrosis. COMPARISON STUDY: Chest CT scans dated 09/19/2021 and 08/04/2018. TECHNIQUE: CT scan of the thorax was performed from the thoracic inlet to the upper abdomen. Images are reviewed in the axial, sagittal, and coronal planes. IV contrast was not administered for this ex amination as per the referring clinician. A dose lowering technique was utilized adhering to the reese Scott. CT DOSE: 525.56 mGy.cm FINDINGS: Thyroid: Imaged portions of the thyroid gland are normal in size and attenuation. Thoracic aorta: There is mild atherosclerotic calcification of the thoracic aorta, with is normal in caliber and demonstrates standard 3-vessel arch anatomy. Heart: The heart is mildly enlarged and without pericardial effusion. The coronary arteries are dense ly calcified. The main pulmonary arteries are dilated indicating pulmonary artery hypertension. Lungs and pleural spaces: Postoperative change is noted in the right middle lobe. Question emphysema. Diffuse subpleural reticulation is again seen throughout both lungs with foci of architectural disto rtion. There is associated subpleural groundglass change. There is traction bronchiectasis seen throu ghout both lungs, greatest at the lung bases with several blebs/foci of cystic change. No definite ho neycombing is seen. There is dense airspace consolidation posteriorly at the right lung base which durham s continued to progress as compared to 09/19/2021. Numerous tiny nodules calcific granulomas are scatt ered throughout both lungs. There is trace right pleural effusion. Lower neck: There is left supraclavicular lymphadenopathy. The largest node is seen on image #42 and measures 1.8 x 1.7 cm. Mediastinum: Mediastinal lymphadenopathy is increased from previous. A precarinal node on image #141 measures 2.6 x 2.2 cm. A subcarinal node measures up to 2.5 cm in short axis. Cherelle: Not well assessed without IV contrast. Axillae: There is a 1.8 cm left axillary node/nodule seen on image #132. No right axillary adenopathy is identified. Upper abdomen: Is enlarged celiac node on image #306 measures 2.2 x 1.2 cm. Partially visualized uppe r abdominal viscera is otherwise within normal limits. The spleen is normal in size. Skeletal structures: The skeletal structures are osteopenic. No lytic or blastic bony lesions are see n. IMPRESSION: 1. Findings of chronic interstitial lung disease with possible superimposed emphysema are detailed ab ove and unchanged to modestly progressed as compared to the 09/19/2021 examination. 2. Dense airspace consolidation at the right lung base has continued to increase as compared to 2021. This could represent progressive fibrosis. Superimposed pneumonia/aspiration pneumonitis or chandan plasm is considered likely and clinical correlation will be essential. 3. There is bulky left supraclavicular and mediastinal lymphadenopathy. Mediastinal lymphadenopathy h as increased from previous and left supraclavicular lymphadenopathy is new from prior studies. There is also a significantly enlarged left axillary node/nodule which is also new from previous as well as and enlarging upper abdominal node. These findings favor neoplasm, and could represent metastatic di sease versus a lymphoproliferative disorder. 4. Cardiomegaly with evidence of pulmonary artery hypertension. 5. Trace right pleural effusion. 6. Additional findings as above. ACT 112: Positive. There are findings on this exam that require communication between the performing entity and the patient following Patient Test Result Information Act ([place] Act 112) guidelines. Electronically signed by: Vincenzo Calhoun M.D. 01/22/2022 8:36 AM
[2022-01-22 08:48] LABS: Estimated Average Glucose 206 mg/dl; Hemoglobin A1C 8.8 % (4.5-5.6)
[2022-01-22] MEDS ORDERED: LANTUS PER UNIT CHARGE SQ SCH (09:00)
[2022-01-22] MEDS ORDERED: LOSARTAN POTASSIUM 50 MG TAB PO SCH (09:00)
[2022-01-22] MEDS ORDERED: amLODIPine BESYLATE 5 MG TAB PO SCH (09:00)
--- NOTE | 2022-01-22 09:22 | Electrocardiogram Report ---
Test Reason : Blood Pressure : / mmHG Vent. Rate : 117 BPM Atrial Rate : 117 BPM P-R Int : 138 ms QRS Dur : 070 ms QT Int : 312 ms P-R-T Axes : 039 181 008 degrees QTc Int : 435 ms Sinus tachycardia Right superior axis deviation Low voltage QRS Abnormal ECG No previous ECGs available Confirmed by Antonio Fatima ([id number]) on 01/22/2022 9:22:22 AM Referred By: REFERRED SELF Confirmed By:Antonio Fatima
--- NOTE | 2022-01-22 11:22 | Hospitalist Progress Note ---
Date of Service January 22, 2022 Assessment & Plan (1) Interstitial lung disease: Plan: ILD flare with some concern for a bacterial process given the new productive sputum. At baseline, has chronic hypoxic respiratory failure and is on 4L NC at home. Procalcitonin is only 0.35. MRSA swab negative. - Solu-Medrol increased to every 6 hours dosing. Continue cefepime started in the ED (penicillin allergy, but tolerated it ok in the ER) - Sputum culture ordered - DuoNebs standing and PRN - Cough suppressant PRN - CT chest results noted. - Pulmonary consult pending (2) Acute kidney injury: Plan: Baseline CKD Stage III with Cr ~1.0 - 1.2. Mild CECELIA with Cr 1.45 on admission. She received IV fluids which have been discontinued to prevent development of pulmonary vascular congestion. Creatinine stable at 1.4. Will monitor intake and output and serial lab studies. Hold home losartan (3) Type 2 diabetes mellitus with microalbuminuria: Plan: A1c was 7.2% in 09/2021. - Hold metformin while hospitalized - Sliding scale insulin -ADA diet (4) Hypertension: Plan: BP on the low end in the ER at 95/65. -Received IV fluids - Holding home amlodipine, losartan - Continue metoprolol as she has some sinus tachycardia with the breathing treatments (5) Depression: Plan: - Continue home venlafaxine (6) DVT prophylaxis: Plan: Heparin 5,000 units SQ BID Conditional code - Willing to have 1 round of ACLS (~5 minutes). Does not want breathing tube/ventilator even if it means she passes away. Was willing to try CPAP/BiPap however. present for this discussion. Code status updated. Plan: Eventual discharge to home Admission and Anticipated Discharge Date Admission Date: January 21, 2022 Subjective Alert and oriented. No acute distress. Oxygen saturation 94% on 4 L oxygen at rest. Creatinine unchanged at 1.4. Will discontinue IV fluids to prevent any development of pulmonary vascular congestion. Parenteral Solu-Medrol increased to every 6 hour dosing. Pulmonary medicine consultation is pending. Review of Systems Review of Systems: Constitutional-no fever or chills ENT-no blurred vision, no double vision, no epistaxis, no sore throat Respiratory-nonproductive cough. Dyspnea on exertion. Cardiac-no palpitations, no chest pain, no syncope GI-no nausea, vomiting, diarrhea, melena, hematochezia -no urinary retention, no urinary incontinence, no dysuria, no hematuria Musculoskeletal-no joint pain, no muscle tenderness Skin-no bruising, no rashes, no pruritus Neuro-no isolated weakness, no paresthesia, no weakness Psych-no depression, no anxiety Physical Exam 2 Physical Exam: General-alert and oriented x3, no fevers, no chills HEENT-head atraumatic and normocephalic, TMs intact bilaterally, pupils equal and reactive to light, extraocular muscles intact Neck-no lymphadenopathy or thyromegaly, trachea midline Chest-coarse, dry bilateral inspiratory rales. No wheezing. No dullness to percussion Cardiac-regular rate and rhythm, normal S1 and S2, no murmurs Abdomen-normal bowel sounds, nontender, no hepatosplenomegaly Extremities-no cyanosis, clubbing, or edema Neuro-cranial nerves II through XII intact, motor and sensory function within normal limits, strength symmetrical , no focal deficits Psych-normal affect, normal mood Results & Data Results & Data ([facility]) Vital Signs (Past 12 Hours) Vital Signs Temp Pulse Pulse Pulse Resp BP Pulse Ox 01/22/22 10:52 93 H 18 93 01/22/22 07:17 36.4 C L 96 H 20 114/76 94 01/22/22 06:57 100 H 20 90 01/22/22 06:24 103 H 01/22/22 03:53 108 H 20 92 01/22/22 03:15 36.6 C 114 H 24 118/72 92 01/22/22 00:20 130 H Laboratory Results 01/22/22 06:22 01/22/22 06:22 PG Care Time/CCT Total # of Minutes Spent Total Time Spent with Patient: Total time spent is greater than 50% in coordination of care (as documented) at patient's floor/unit and/or counseling patient: Coding Level of Care Code 14922 Subseq Hosp Care Lvl 3 Diagnoses Interstitial lung disease J84.9 Acute kidney injury N17.9 Type 2 diabetes mellitus with microalbuminuria E11.29; R80.9 Hypertension I10 Depression F32.9 DVT prophylaxis Z29.9
--- NOTE | 2022-01-22 12:06 | Pharmacy Report ---
Pharmacy Glycemic Short Note 2 - Date of Service January 22, 2022 - Glycemic Short BSG Results (Last 24 hours): 01/21/22 01/21/22 01/22/22 19:18 22:50 04:00 Glucose 227 H POC Glucose 278 H 233 H 01/22/22 01/22/22 01/22/22 06:22 07:59 11:40 Glucose 206 H POC Glucose 200 H 195 H OUTPATIENT ANTIDIABETIC REGIMEN: * Metformin 500mg QAM 1000mg QPM * A1c 8.8% 01/22/22 ASSESSMENT: * 71 year old female admitted for ILD flare with some concern for a bacterial process given the new productive sputum, on IV Cefepime and Solu-Medrol 40mg IV Q6H, causing steroid induced hyperglycemia. * Uncontrolled diabetic at home on metformin only. * Basal bolus insulin started on admission with glycemic consult, titrate to goal blood sugar, making adjustments as steroids are changed. PLAN FOR INPATIENT GLYCEMIC CONTROL: * Hold outpatient oral diabetes medications * Basal insulin * Lantus 20 units SQ daily * Bolus insulin * NovoLog per scale ACHS or Q6hrs while NPO * Goal Range: Low 110 mg/dL - High 140 mg/dL * Correction Factor: 12 mg/dL/unit * Nutritional / Prandial insulin per carb ratio of 1 unit per 4 grams CHO consumed
--- NOTE | 2022-01-22 17:19 | Pulmonary Consultation ---
Date of Consultation January 22, 2022 Assessment & Plan (1) Pneumonia: Laterality: bilateral Lung location: lower lobe of lung Pneumonia type: due to unspecified organism Qualified Code(s): J18.9 - Pneumonia, unspecified organism (2) Abnormal CT scan, chest: (3) Hypoxia: (4) Interstitial lung disease: (5) GERD (gastroesophageal reflux disease): Attending: Dr. Ibanez Impression: 71-year-old female that presents with progressive shortness of breath. Initially thought to be ILD flare but chest x-ray and CT scan showed dense consolidation as well as supraclavicular and mediastinal lymphadenopathy concerning for lymphoproliferative spread. Patient was started on antibiotics using cefepime as well as Solu-Medrol IV. She has improved since admission. She follows with Dr. Em as an outpatient for her interstitial lung disease. Recommendations: 1. Abnormal CT scan chest: * Patient does have known interstitial lung disease. CT scan performed shows mediastinal lymphadenopathy as well as bulky supraclavicular left lymphadenopathy. * Will request that radiology perform ultrasound-guided biopsy of the supraclavicular node to rule out lymphoproliferative disease * Doubt that this is ILD flare. * Will discontinue patient cefepime and start her on azithromycin and Zosyn * Continue Mucinex twice daily * Will also start guaifenesin/dextromethorphan for cough * Discontinue benzonatate (Tessalon Perles) as patient does not like the way they make her feel * Bio fire was negative 2. Pneumonia: * Dense consolidation at the right base consistent with infectious process * Discontinue cefepime and start patient on Zosyn and azithromycin * Afebrile * Check sputum culture and sensitivity 3. Interstitial lung disease: * Steroids currently being tapered by Dr. Em as an outpatient * Patient currently states that she is on 10 mg daily and since reducing she has felt more short of breath * Continue with steroids as an inpatient but decrease from every 6 hours to every 8 hours 4. Hypoxia: * At this point, it appears to be multifactorial * Continue with supplemental oxygen to maintain SaO2 greater than 90% * Work-up for CT scan chest as well as interstitial lung disease and pneumonia as above 5. Mediastinal lymphadenopathy: * Patient also with left supraclavicular lymphadenopathy. * Have requested ultrasound-guided biopsy of the supraclavicular node. If this is unobtainable or negative may need to consider CT-guided biopsy of the mediastinal node versus mediastinoscopy Thank you for including us in the care of this patient. We will continue to follow along with you Supervising Physician Co-Signing Physician Notes I saw and evaluated the patient with Vincenzo Dillon, and agree with findings and plan as documented in the note. 71-year-old female with known diagnosis of ILD/pulmonary fibrosis was on 10 mg of prednisone as an outpatient. On 4 L nasal cannula [id number]. Presented to the hospital complaining of shortness of breath At the time of examination patient was saturating 94% on 4 L nasal cannula. Not in any acute distress. She stated she is feeling much better. No hemoptysis. No fever or chills at home. CT chest 01/21/2022 personally reviewed: Interstitial thickening and reticular marking appreciated bilaterally upper and lower lobes along with traction bronchiectasis Right lower lobe consolidative process worsened compared to previous CAT scan Significant mediastinal lymphadenopathy along with left axillary and left supraclavicular lymphadenopathy Constitutional: No acute distress HEENT: EOMI, PERRLA Respiratory system: Decreased air entry bilaterally, positive Velcro-like crackles appreciated bilaterally, no wheeze, no rhonchi CVS: S1-S2 positive, no murmurs or gallops Abdomen: Soft, nontender, nondistended, positive bowel sounds x4 Extremities: +2 pulses bilaterally radialis/ dorsalis pedis, no cyanosis, no edema, no clubbing Neuro: Awake alert oriented x3 Psych: Normal mood and affect G/U: No Liu Plan: Patient did have previously appreciated mediastinal lymphadenopathy. But this left supraclavicular as well as left axilla lymphadenopathy is new. I would recommend to have biopsy of either one of the bone nodules done to rule out any underlying malignancy Patient did not need an increase of oxygen requirement when it comes to her oxygen saturation. The right lower lobe opacity seems to be more consolidated rather than an exacerbation of underlying ILD. Patient's ILD has worsened gradually compared to before. Recommend to go down on Solu-Medrol to maybe 40 mg every 12 Antitussive medication [id number]. Continue with antibiotics with atypical coverage Please note the above document was generated using voice recognition software. It may contain grammatical, syntax or spelling errors.Any formal questions or concerns about the content, text or information contained within the body of this dictation should be directly addressed to the provider for clarification. History of Present Illness Reason for Consultation: Interstitial lung disease/pneumonia Attending Physician: Lam Douglas MD History of Present Illness Attending: Dr. Ibanez This is a 71-year-old female that follows with Dr. Em in the outpatient pulmonary clinic for interstitial lung disease. He has been working on steroid titration. She previously was on 20 mg p.o. daily of prednisone. His plan was to reduce her to 10 mg and then 2.5 mg at a time to try and wean her down to a tolerable level. Over the last 2 weeks she noticed increased shortness of breath. Her PCP put her on antibiotics and a steroid taper and at 10 mg p.o. daily she noted that she had increased shortness of breath. She reported to the emergency department for evaluation and was started on steroids and cefepime. Pulmonary was consulted for evaluation of possible ILD flare. A CT scan of the chest was obtained and shows progressive interstitial lung disease with superimposed emphysema. It was also noted that there is dense airspace consolidation of the right lung base. In addition there is bulky left supraclavicular and mediastinal lymphadenopathy. The left supraclavicular lymphadenopathy appears to be new from prior studies. This raises the question of neoplasm or lymphoproliferative disorder. Patient denies any fever or hemoptysis. She states that since receiving the higher doses of more frequent steroids IV she feels much better. This may be inflammation from pneumonitis improving from the steroid use and is most likely not related to the interstitial lung disease. Patient denies any chest pain or tightness. She has no significant shortness of breath at this period. She reports that she is chronically on supplemental oxygen and is currently at her baseline. Patient has no other acute complaints. Allergies Allergy/AdvReac Type Severity Reaction Status Date / Time Sulfa (Sulfonamide Allergy Intermediate EYES Verified 01/21/22 19:05 Antibiotics) SWELLING/ITCHING Penicillins Allergy Mild Rash Verified 01/21/22 19:05 Home Medications Medication Instructions Recorded Confirmed Type aspirin 81 mg tablet,delayed 81 mg PO DAILY #90 tab 04/28/19 01/21/22 Rx release (David Low Dose Aspirin) ascorbate calcium (vitamin C) 500 500 mg PO DAILY 05/02/19 01/21/22 History mg tablet cholecalciferol (vitamin D3) 25 2,000 units PO DAILY cap 09/08/19 01/21/22 History mcg (1,000 unit) capsule Portable Oxygen #1 ea 10/03/19 01/21/22 History losartan 100 mg tablet 100 mg PO DAILY #90 tab 12/24/20 01/21/22 Rx albuterol sulfate 2.5 mg INH Q4H PRN #90 ml 01/02/21 01/21/22 Rx rosuvastatin 40 mg tablet (Crestor) 40 mg PO QPM #90 tab 01/28/21 01/21/22 Rx loratadine 10 mg tablet 10 mg PO DAILY #30 tab 02/11/21 01/21/22 Rx albuterol sulfate 90 mcg/actuation 2 inh INHALATION Q4H PRN #1 ea MDD 02/25/21 01/21/22 Rx breath activated powder inhaler 12 (ProAir RespiClick) omeprazole 20 mg capsule,delayed 20 mg PO QAM #90 cap 04/11/21 01/21/22 Rx release amlodipine 5 mg tablet 5 mg PO DAILY #90 tab 08/20/21 01/21/22 Rx benzonatate 100 mg capsule 100 mg PO TID PRN #30 cap 10/07/21 01/21/22 Rx nystatin 100,000 unit/gram topical 1 applic TOPICAL BID #60 g 10/07/21 01/21/22 Rx powder fluticasone furoate 100 1 inh INHALATION DAILY #60 ea 10/16/21 01/21/22 Rx mcg-vilanterol 25 mcg/dose inhalation powder (Breo Ellipta) metoprolol succinate 50 mg 50 mg PO DAILY #90 tab 10/27/21 01/21/22 Rx tablet,extended release 24 hr metformin 500 mg tablet 500 mg PO .COMPLEX #270 tab 01/02/22 01/21/22 Rx venlafaxine 75 mg capsule,extended 75 mg PO HS #90 cap 01/19/22 01/21/22 Rx release 24 hr (Effexor XR) prednisone 10 mg tablet 10 mg PO DAILY 01/21/22 01/21/22 History Patient History Medical History 2018 novel coronavirus not detected Abnormal CT scan, chest Acute kidney injury Allergic rhinitis Anxiety Asthma HAS NOT USED RESCUE INHALER SINCE APRIL 2018 Benign essential hypertension Cardiac murmur ? 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 NO sleep apnea. 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 History of carpal tunnel release RT History of colonoscopy History of esophagogastroduodenoscopy (EGD) History of hernia repair UMBILICAL History of laparoscopic cholecystectomy History of tooth extraction Family History Father Heart disease Hypertension Sister Cancer Social History Smoking Status: Never smoker Second Hand Exposure: No; Hx Alcohol Use: No Hx Substance Use: No Preferred Language: Comoran Communication Ability: Effective Visual Impairment: No Limitations Hearing Ability: Normal Cost Accounting Clerk Required: No Beliefs That Will Affect Care: None marital status: Current Living Situation: Spouse Current Living Situation Comment: Home with in a prison community current occupational status: retired How many Children do You have: 2 Other Information That Helps Us Care for You: No Feels Safe at Home: Yes Safety Concerns: Feels Safe At This Time caffeine: Yes Dental Care, Regularly: Yes Physical Activity Frequency: 1-2 Times per Week Seatbelt Use: always Sunscreen Use: Yes Assistive Devices: Oxygen - Continuous and Wheelchair Review of Systems Review of Systems: A total of 10 systems was reviewed and is negative other than as listed in the HPI Physical Exam Physical Exam: GENERAL : No acute distress EYES: No icterus, gaze conjugate NOSE: No evidence of epistaxis MOUTH: No lesions or candidiasis NECK: Supple LUNGS: Decreased breath sounds at the right base. Some scattered wheezes which clear with forced cough. No rales or rhonchi appreciated HEART: Regular, rate controlled ABDOMEN: Soft, NT, ND, BS Present EXTREMITIES: No LE edema, pedal pulses intact NEURO: A&OX3 Results & Data Results & Data ([facility]) Vital Signs (Past 12 Hours) Vital Signs Temp Pulse Pulse Resp BP Pulse Ox 01/22/22 16:38 93 01/22/22 15:56 36.6 C 94 H 20 125/61 94 01/22/22 15:12 91 H 19 98 01/22/22 14:19 90 01/22/22 11:55 36.8 C 99 H 20 115/52 L 94 01/22/22 10:52 93 H 18 93 01/22/22 07:17 36.4 C L 96 H 20 114/76 94 01/22/22 06:57 100 H 20 90 01/22/22 06:24 103 H Critical Care Results & Data Vital Signs (Past 12 Hours) Vital Signs Temp Pulse Pulse Resp BP Pulse Ox 01/22/22 16:38 93 01/22/22 15:56 36.6 C 94 H 20 125/61 94 01/22/22 15:12 91 H 19 98 01/22/22 14:19 90 01/22/22 11:55 36.8 C 99 H 20 115/52 L 94 01/22/22 10:52 93 H 18 93 01/22/22 07:17 36.4 C L 96 H 20 114/76 94 01/22/22 06:57 100 H 20 90 Lab & Micro Results (Past 24 Hours) RBC 3.61 M/uL (4.2-5.4) L 01/23/22 WBC 15.05 K/uL (4.8-10.8) H 01/23/22 Hgb 10.9 g/dL (12.0-16.0) L 01/23/22 Hct 33.5 % (37-47) L 01/23/22 MCV 92.8 fL (80-100) 01/23/22 MCH 30.2 pg (25-34) 01/23/22 MCHC 32.5 g/dL (32-36) 01/23/22 RDW Standard Deviation 51.1 fL (36.4-46.3) H 01/23/22 RDW Coefficient of Variation 14.9 % (11.5-14.5) H 01/23/22 Plt Count 327 K/uL (130-400) 01/23/22 MPV 9.9 fL (7.4-10.4) 01/23/22 Neutrophils (%) (Auto) 93.7 % 01/23/22 Lymphocytes (%) (Auto) 3.0 % 01/23/22 Monocytes # (Auto) 0.44 K/uL (0.11-0.59) 01/23/22 Eosinophils # (Auto) 0.00 K/uL (0-0.5) 01/23/22 Immature Granulocyte % (Auto) 0.3 % 01/23/22 Neutrophils # (Auto) 14.10 K/uL (1.4-6.5) H 01/23/22 Lymphocytes # (Auto) 0.45 K/uL (1.2-3.4) L 01/23/22 Monocytes # (Auto) 0.44 K/uL (0.11-0.59) 01/23/22 Eosinophils # (Auto) 0.00 K/uL (0-0.5) 01/23/22 Basophils # (Auto) 0.01 K/uL (0-0.2) 01/23/22 Immature Granulocyte # (Auto) 0.05 K/uL (0.00-0.02) H 01/23/22 Na 137 mmol/L (136-145) 01/23/22 K 4.1 mmol/L (3.5-5.1) 01/23/22 Cl 101 mmol/L (98-107) 01/23/22 CO2 27 mmol/L (21-32) 01/23/22 Anion Gap 9 (3-11) 01/23/22 BUN 28 mg/dl (6-23) H 01/23/22 Creatinine 1.41 mg/dl (0.6-1.2) H 01/23/22 Estimated GFR ( Amer) 42.7 ml/min 01/23/22 Estimated GFR (Non-Af Amer) 36.9 ml/min 01/23/22 BUN/Creatinine Ratio 19.9 (10-20) 01/23/22 Glu 181 mg/dl (70-99(Fasting)) H 01/23/22 Ca 9.4 mg/dl (8.5-10.1) 01/23/22 Calcium Level 9.4 mg/dl (8.5-10.1) 01/23/22 07:15 01/23/22 Diagnostic Findings (Past 24 Hours) Chest X-Ray 01/21/22 18:55 XR chest 1V portable HISTORY: 71 years-old Female weakness acute weakness COMPARISON: Chest CT 09/19/2021 TECHNIQUE: Portable AP view of the chest FINDINGS: The cardiac silhouette is enlarged. No pneumothorax, large pleural effusion or overt pulmonary edema. Chronic interstitial lung disease. Evidence of pulmonary arterial hypertension. Mild bibasilar consolidative opacities. Degenerative changes of the shoulders and spine. IMPRESSION: 1. Cardiomegaly with chronic interstitial lung disease. 2. Bibasilar consolidative opacities may be secondary to atelectasis/scarring however an underlying pneumonitis could appear similarly. ACT 112: Negative or not required by law. The above report was generated using voice recognition software. It may contain grammatical, syntax or spelling errors. Electronically signed by: Jp Greenwood M.D. 01/21/2022 7:[address] 01/21/22 21:29 CT SCAN OF THE CHEST WITHOUT IV CONTRAST CLINICAL HISTORY: Cough and dyspnea. Pulmonary fibrosis. COMPARISON STUDY: Chest CT scans dated 09/19/2021 and 08/04/2018. TECHNIQUE: CT scan of the thorax was performed from the thoracic inlet to the upper abdomen. Images are reviewed in the axial, sagittal, and coronal planes. IV contrast was not administered for this examination as per the referring clinician. A dose lowering technique was utilized adhering to the principles of ALARA. CT DOSE: 525.56 mGy.cm FINDINGS: Thyroid: Imaged portions of the thyroid gland are normal in size and attenuation. Thoracic aorta: There is mild atherosclerotic calcification of the thoracic aorta, with is normal in caliber and demonstrates standard 3-vessel arch mary ellen kostas. Heart: The heart is mildly enlarged and without pericardial effusion. The coronary arteries are densely calcified. The main pulmonary arteries are dilated indicating pulmonary artery hypertension. Lungs and pleural spaces: Postoperative change is noted in the right middle lobe. Question emphysema. Diffuse subpleural reticulation is again seen throughout both lungs with foci of architectural distortion. There is associated subpleural groundglass change. There is traction bronchiectasis seen throughout both lungs, greatest at the lung bases with several blebs/foci of cystic change. No definite honeycombing is seen. There is dense airspace consolidation posteriorly at the right lung base which has continued to progress as compared to 09/19/2021. Numerous tiny nodules calcific granulomas are scattered throughout both lungs. There is trace right pleural effusion. Lower neck: There is left supraclavicular lymphadenopathy. The largest node is seen on image #42 and measures 1.8 x 1.7 cm. Mediastinum: Mediastinal lymphadenopathy is increased from previous. A precarinal node on image #141 measures 2.6 x 2.2 cm. A subcarinal node measures up to 2.5 cm in short axis. Cherelle: Not well assessed without IV contrast. Axillae: There is a 1.8 cm left axillary node/nodule seen on image #132. No right axillary adenopathy is identified. Upper abdomen: Is enlarged celiac node on image #306 measures 2.2 x 1.2 cm. Pa rtially visualized upper abdominal viscera is otherwise within normal limits. The spleen is normal in size. Skeletal structures: The skeletal structures are osteopenic. No lytic or blastic bony lesions are seen. IMPRESSION: 1. Findings of chronic interstitial lung disease with possible superimposed emphysema are detailed above and unchanged to modestly progressed as compared to the 09/19/2021 examination. 2. Dense airspace consolidation at the right lung base has continued to increase as compared to 09/19/2021. This could represent progressive fibrosis. Superimposed pneumonia/aspiration pneumonitis or neoplasm is considered likely and clinical correlation will be essential. 3. There is bulky left supraclavicular and mediastinal lymphadenopathy. Mediastinal lymphadenopathy has increased from previous and left supraclavicular lymphadenopathy is new from prior studies. There is also a significantly enlarged left axillary node/nodule which is also new from previous as well as and enlarging upper abdominal node. These findings favor neoplasm, and could represent metastatic disease versus a lymphoproliferative disorder. 4. Cardiomegaly with evidence of pulmonary artery hypertension. 5. Trace right pleural effusion. 6. Additional findings as above. ACT 112: Positive. There are findings on this exam that require communication between the performing entity and the patient following Patient Test Result Information Act ([place] Act 112) guidelines. Electronically signed by: Vincenzo Calhoun M.D. 01/22/2022 8:36 AM I & O Totals 24 Hours 01/21/22 01/22/22 01/23/22 06:59 06:59 06:59 Intake Total 700 / 700 1220 / 1220 Output Total 200 / 200 Balance 500 / 500 1220 / 1220 Cumulative 01/21/22 18:43 thru 01/22/22 17:20 Intake Total 1920 Output Total 200 Balance 1720 RT Ventilator Mngmt (Last Documented) Ventilator Ordered Settings Respiratory Rate 20 01/22/22 15:56 Ventilator - PT Measurements Respiratory Rate 20 PG Care Time/CCT Total # of Minutes Spent Total Time Spent with Patient: Total time spent is greater than 50% in coordination of care (as documented) at patient's floor/unit and/or counseling patient: 60 minutes Coding Level of Care Code 29470 Initial Inpt Care Lvl 3 Diagnoses Pneumonia J18.9 Laterality: bilateral Lung location: lower lobe of lung Pneumonia type: due to unspecified organism Abnormal CT scan, chest R93.89 Hypoxia R09.02 Interstitial lung disease J84.9 GERD (gastroesophageal reflux disease) K21.9
[2022-01-22] MEDS ORDERED: guaiFENesin/DEXTROM SYRUP 200MG/20MG 10ML UDC PO PRN (17:23)
[2022-01-22] MEDS ORDERED: AZITHROMYCIN 500 MG in DEXTROSE 5% 250 ML IV ONE (17:45)
[2022-01-22] MEDS ORDERED: ALBUTEROL 0.083% NEBU SOLN 3 ML VIAL NEB PRN (19:53)
[2022-01-22] MEDS: methylPREDNISolone 40 MG in SYRINGE 0 ML IV SCH (20:57)
[2022-01-22] MEDS: VENLAFAXINE HCL XR 75 MG CAPXR PO SCH (20:59)
[2022-01-22] MEDS: ROSUVASTATIN CALCIUM 20 MG TAB PO SCH (20:59)
[2022-01-22] MEDS: PIPERACILLIN/TAZOBACTAM 3.375 GM in DEXTROSE 5% 100 ML IV SCH (22:57)
[2022-01-23] MEDS: methylPREDNISolone 40 MG in SYRINGE 0 ML IV SCH ×2 (03:35→12:15)
[2022-01-23] MEDS: PIPERACILLIN/TAZOBACTAM 3.375 GM in DEXTROSE 5% 100 ML IV SCH ×3 (06:37→21:02)
[2022-01-23] MEDS: ALBUT/IPRATROP 3MG/0.5MG NEB 3 ML VIAL NEB SCH ×4 (07:12→19:45)
[2022-01-23 07:46] LABS: Basophils # (auto) 0.01 K/uL (0-0.2); Basophils % (auto) 0.1 %; Hematocrit (blood only) 33.5 % (37-47); Hemoglobin 10.9 g/dL (12.0-16.0); Immature Granulocytes # (auto) 0.05 K/uL (0.00-0.02); Immature Granulocytes % (auto) 0.3 %; Lymphocytes # (auto) 0.45 K/uL (1.2-3.4); Mean Corpuscular Hemoglobin 30.2 pg (25-34); Mean Corpuscular Hgb Conc 32.5 g/dL (32-36); Mean Corpuscular Volume 92.8 fL (80-100); Mean Platelet Volume 9.9 fL (7.4-10.4); Monocytes # (auto) 0.44 K/uL (0.11-0.59); Monocytes % (auto) 2.9 %; Neutrophils % (auto) 93.7 %; Platelet Count 327 K/uL (130-400); RDW Coefficient of Variation 14.9 % (11.5-14.5); RDW Standard Deviation 51.1 fL (36.4-46.3); Red Blood Count 3.61 M/uL (4.2-5.4); White Blood Count 15.05 K/uL (4.8-10.8)
[2022-01-23 07:59] LABS: BUN Creatinine Ratio 19.9 (10-20); Calcium 9.4 mg/dl (8.5-10.1); Est GFR (African American) 42.7 ml/min; Est GFR (Non-African American) 36.9 ml/min; Potassium 4.1 mmol/L (3.5-5.1)
[2022-01-23] MEDS: INSULIN ASPART PER UNIT SC SCH ×4 (08:56→20:57)
[2022-01-23] MEDS: AZITHROMYCIN 250 MG TAB PO SCH (08:58)
[2022-01-23] MEDS: ASPIRIN 81 MG ECTAB PO SCH (08:59)
[2022-01-23] MEDS: METOPROLOL SUCC 50MG EXT REL TAB PO SCH (08:59)
[2022-01-23] MEDS: FLUTICASONE/VILANTEROL 100/25MCG 14 PUFFS/INHALER INH SCH (08:59)
[2022-01-23] MEDS: PANTOprazole 40 MG TAB PO SCH (08:59)
[2022-01-23] MEDS: LORATADINE 10 MG TAB PO SCH (08:59)
[2022-01-23] MEDS: HEPARIN SOD 5,000 UNIT/0.5 ML VIAL SQ SCH ×2 (09:00→21:01)
[2022-01-23] MEDS ORDERED: LANTUS PER UNIT CHARGE SQ ONE (09:00)
--- NOTE | 2022-01-23 10:23 | Hospitalist Progress Note ---
Date of Service January 23, 2022 Assessment & Plan (1) Pneumonia: Plan: Right lower lobe. Blood cultures are negative. Sputum culture nondiagnostic. She is now on azithromycin and Zosyn. Appreciate pulmonary medicine input. (2) Abnormal CT scan, chest: Plan: Right lower lobe infiltrate noted along with lymphadenopathy. Biopsy of supra clavicular nodes pending (3) Hypoxia: Plan: Acute on chronic respiratory failure with hypoxia due to right lower lobe pneumonia exacerbating interstitial lung disease. Continue oxygen per nasal cannula to maintain saturation greater than 90% (4) Interstitial lung disease: Plan: She requires chronic oxygen therapy at home and is prednisone dependent. Currently on parenteral steroid therapy. Continue to treat right lower lobe pneumonia. (5) GERD (gastroesophageal reflux disease): Plan: PPI therapy Plan: Eventual discharge to home. Admission and Anticipated Discharge Date Admission Date: January 21, 2022 Subjective Alert and oriented and feeling better. Pulmonary medicine consultation noted. She probably has right lower lobe pneumonia causing exacerbation of her underlying interstitial lung disease and respiratory failure. She is now on Zosyn and azithromycin. Biopsy of left supraclavicular nodes pending. Creatinine stable at 1.4. Blood cultures negative and sputum culture nondiagnostic Review of Systems Review of Systems: Constitutional-no fever or chills ENT-no blurred vision, no double vision, no epistaxis, no sore throat Respiratory-no cough, no wheezing. Dyspnea on exertion has improved Cardiac-no palpitations, no chest pain, no syncope GI-no nausea, vomiting, diarrhea, melena, hematochezia -no urinary retention, no urinary incontinence, no dysuria, no hematuria Musculoskeletal-no joint pain, no muscle tenderness Skin-no bruising, no rashes, no pruritus Neuro-no isolated weakness, no paresthesia, no weakness Psych-no depression, no anxiety Physical Exam Physical Exam: General-alert and oriented x3, no fevers, no chills HEENT-head atraumatic and normocephalic, TMs intact bilaterally, pupils equal and reactive to light, extraocular muscles intact Neck-no lymphadenopathy or thyromegaly, trachea midline Chest-bilateral inspiratory coarse rales. No wheezing. Cardiac-regular rate and rhythm, normal S1 and S2, no murmurs Abdomen-normal bowel sounds, nontender, no hepatosplenomegaly Extremities-no cyanosis, clubbing, or edema Neuro-cranial nerves II through XII intact, motor and sensory function within normal limits, strength symmetrical , no focal deficits Psych-normal affect, normal mood Results & Data Results & Data ([facility]) Vital Signs (Past 12 Hours) Vital Signs Temp Pulse Pulse Resp BP BP Pulse Ox 01/23/22 08:19 36.7 C 105 H 22 117/70 96 01/23/22 07:54 83 01/23/22 07:12 97 H 20 98 01/23/22 03:38 36.7 C 82 16 108/69 96 01/22/22 23:37 96 H 01/22/22 23:23 36.6 C 86 17 111/73 94 Laboratory Results 01/23/22 07:15 01/23/22 07:15 PG Care Time/CCT Total # of Minutes Spent Total Time Spent with Patient: Total time spent is greater than 50% in coordination of care (as documented) at patient's floor/unit and/or counseling patient: Coding Level of Care Code 13763 Subseq Hosp Care Lvl 3 Diagnoses Pneumonia J18.9 Laterality: bilateral Lung location: lower lobe of lung Pneumonia type: due to unspecified organism Abnormal CT scan, chest R93.89 Hypoxia R09.02 Interstitial lung disease J84.9 GERD (gastroesophageal reflux disease) K21.9 (1) Pneumonia Laterality: bilateral Lung location: lower lobe of lung Pneumonia type: due to unspecified organism Qualified Code(s): J18.9 - Pneumonia, unspecified organism
--- NOTE | 2022-01-23 11:47 | Ultrasound Report ---
US FNA lymph node CLINICAL HISTORY: Pathologic left supraclavicular adenopathy. COMPARISON STUDY: Chest CT 01/21/2022. PROCEDURE: The risks, benefits, and alternatives to the procedure were discussed with the patient. Wr itten informed consent was obtained. The patient was placed supine in ultrasound, and one of the path ologically enlarged left supraclavicular lymph nodes was localized by ultrasound and selected for fin e needle aspiration. The left neck was prepped and draped in the usual sterile fashion. The nodule wa s aspirated under ultrasound guidance with 4 passes utilizing 25-gauge needles. Specimens were review ed by the pathologist in real-time and deemed adequate for diagnosis. The patient tolerated the proce dure well and left the department in satisfactory condition. IMPRESSION: Completed fine-needle aspiration of pathologically enlarged left supraclavicular lymph no de. ACT 112: Negative or not required by law. The above report was generated using voice recognition software. It may contain grammatical, syntax o r spelling errors. Electronically signed by: Jp Greenwood M.D. 01/23/2022 11:45 AM
--- NOTE | 2022-01-23 14:51 | Pharmacy Report ---
Pharmacy Glycemic Short Note 2 - Date of Service January 23, 2022 - Glycemic Short BSG Results (Last 24 hours): 01/22/22 01/22/22 01/23/22 16:45 20:02 07:15 Glucose 181 H POC Glucose 240 H 282 H 01/23/22 01/23/22 07:51 11:42 Glucose POC Glucose 194 H 229 H OUTPATIENT ANTIDIABETIC REGIMEN: * Metformin 500mg QAM 1000mg QPM * A1c 8.8% 01/22/22 ASSESSMENT: 01/23/22: * Kalyani received 87 units of insulin yesterday * 20 units Lantus + 67 units Novolog * BSGs: 200, 195, 240, 282 mg/dL * Pt on solu medrol 40 mg IV every 6 hours at this time * Fasting BSG of 194 mg/dL is above goal. Will increase Lantus dose and change to dose per scale to allow for easier titration when steroids are tapered/discontinued * Post prandial BSGs remain significantly elevated. Will tighten Novolog parameters. Solu medrol decreased to q8h today. 01/22/22: * 71 year old female admitted for ILD flare with some concern for a bacterial process given the new productive sputum, on IV Cefepime and Solu-Medrol 40mg IV Q6H, causing steroid induced hyperglycemia. * Uncontrolled diabetic at home on metformin only. * Basal bolus insulin started on admission with glycemic consult, titrate to goal blood sugar, making adjustments as steroids are changed. PLAN FOR INPATIENT GLYCEMIC CONTROL: * Hold outpatient oral diabetes medications * Basal insulin * Lantus 30 units SQ this morning, 0-10-15 units SQ tonight (10 units for 140-200, 15 units for > 200 mg/dl) * Starting 01/24: Lantus 10-15-20 units SQ BID (10 units for BSG <120, 15 units for 120-180, 20 units for > 180 mg/dl) * Bolus insulin * NovoLog per scale ACHS or Q6hrs while NPO * Goal Range: Low 110 mg/dL - High 140 mg/dL * Correction Factor: 10 mg/dL/unit * Nutritional / Prandial insulin per carb ratio of 1 unit per 3 grams CHO consumed
--- NOTE | 2022-01-23 16:11 | Pulmonology Progress Note ---
Date of Service January 23, 2022 Assessment & Plan (1) Pneumonia: Laterality: bilateral Lung location: lower lobe of lung Pneumonia type: due to unspecified organism Qualified Code(s): J18.9 - Pneumonia, unspecified organism (2) Abnormal CT scan, chest: (3) Hypoxia: (4) Interstitial lung disease: (5) GERD (gastroesophageal reflux disease): Plan: Attending: Dr. Ibanez Impression: 71-year-old female that presents with progressive shortness of breath. Initially thought to be ILD flare but chest x-ray and CT scan showed dense consolidation as well as supraclavicular and mediastinal lymphadenopathy concerning for lymphoproliferative spread. Patient was started on antibiotics using cefepime as well as Solu-Medrol IV. She has improved since admission. She follows with Dr. Em as an outpatient for her interstitial lung disease. Recommendations: 1. Abnormal CT scan chest: * Patient does have known interstitial lung disease. CT scan performed shows mediastinal lymphadenopathy as well as bulky supraclavicular left lymphadenopathy. * Appreciate radiology performing ultrasound-guided biopsy of the sup raclavicular node. Rule out lymphoproliferative disease * Doubtful that this is ILD flare. * Continue azithromycin and Zosyn * Continue Mucinex twice daily * Continue guaifenesin/dextromethorphan for cough * Discontinue benzonatate (Tessalon Perles) as patient does not like the way they make her feel * Bio fire was negative 2. Pneumonia: * Dense consolidation at the right base consistent with infectious process * Discontinued cefepime and started patient on Zosyn and azithromycin * Sputum sample with light normal fercho * Patient with considerable improvement. Can convert to oral antibiotics so they can be continued on discharge * Afebrile 3. Interstitial lung disease: * Steroids currently being tapered by Dr. Em as an outpatient * Patient currently states that she is on 10 mg daily and since reducing she has felt more short of breath * Patient can be converted to prednisone 40 mg p.o. daily x5 days and then taper down to 10 mg until seen by Dr. Em. * The pulmonary office is working on an appointment for her and will call her at home 4. Hypoxia: * Patient is back to her baseline * Continue with supplemental oxygen to maintain SaO2 greater than 90% * Continue to treat for pneumonia. Await pathology from lymph node biopsy 5. Mediastinal lymphadenopathy: * Patient also with left supraclavicular lymphadenopathy. * Ultrasound-guided biopsy of the supraclavicular node completed. Await biopsy results Thank you for including us in the care of this patient. We will sign off at this time. Patient will be scheduled Dr. Em as an outpatient Admission and Anticipated Discharge Date Admission Date: January 21, 2022 Supervising Physician Co-Signing Physician Notes I saw and evaluated the patient with Vincenzo Dillon, and agree with findings and plan as documented in the note. CT chest 01/21/2022 personally reviewed: Interstitial thickening and reticular marking appreciated bilaterally upper and lower lobes along with traction bronchiectasis Right lower lobe consolidative process worsened compared to previous CAT scan Significant mediastinal lymphadenopathy along with left axillary and left supraclavicular lymphadenopathy Patient seen and examined at bedside. No acute distress, no adverse events overnight. Patient is status post left supraclavicular lymph node biopsy by radiology. She is feeling much better. Denies any chest pain She does complain of cough and able to bring up phlegm. Patient was also in the room. Constitutional: No acute distress HEENT: EOMI, PERRLA Respiratory system: Decreased air entry bilaterally, positive Velcro-like crackles appreciated bilaterally, no wheeze, no rhonchi CVS: S1-S2 positive, no murmurs or gallops Abdomen: Soft, nontender, nondistended, positive bowel sounds x4 Extremities: +2 pulses bilaterally radialis/ dorsalis pedis, no cyanosis, no edema, no clubbing Neuro: Awake alert oriented x3 Psych: Normal mood and affect G/U: No Liu Plan: Follow-up pathology of left supraclavicular lymph node biopsy Continue with antibiotics for total of 10 days Start tapering prednisone 40 mg for 3 days followed by 30 for 3 followed by 20 for 3 and then 10 mg on a daily basis till she sees outpatient pulmonology. All question inquiries of patient as well as patient's were answered in depth. No further recommendation from pulmonary perspective. Will sign off. Please call directly with any questions Please note the above document was generated using voice recognition software. It may contain grammatical, syntax or spelling errors.Any formal questions or concerns about the content, text or information contained within the body of this dictation should be directly addressed to the provider for clarification. Subjective Attending: Dr. Ibanez Patient seen and examined in room 258. She is feeling much better since being treated with antibiotics and steroids. She feels as though she is back at baseline. She is on her baseline supplemental oxygen. She is eating well. She had a supraclavicular lymph node biopsy this morning without complication. Band-Aids in place with no evidence of bleeding. No fever or chills. Cough is improved. No other acute complaints. Review of Systems Review of Systems: A total of 10 systems was reviewed and is negative other than as listed above in the HPI Physical Exam Physical Exam: GENERAL : No acute distress EYES: No icterus, gaze conjugate NOSE: No evidence of epistaxis MOUTH: No lesions or candidiasis NECK: Supple. Band-Aid in the supraclavicular area on the left from biopsy this morning is dry and intact with no evidence of bleeding. LUNGS: Velcro-like crackles. Bronchospasms have resolved. No significant rales or rhonchi appreciated. HEART: Regular, rate controlled ABDOMEN: Soft, NT, ND, BS Present EXTREMITIES: No LE edema, pedal pulses intact NEURO: A&OX3 Results & Data Results & Data ([facility]) Vital Signs (Past 12 Hours) Vital Signs Temp Pulse Pulse Resp BP Pulse Ox 01/23/22 15:14 62 22 96 01/23/22 14:56 93 H 01/23/22 08:19 36.7 C 105 H 22 117/70 96 01/23/22 07:54 83 01/23/22 07:12 97 H 20 98 Critical Care Results & Data Vital Signs (Past 12 Hours) Vital Signs Temp Pulse Pulse Resp BP Pulse Ox 01/23/22 15:14 62 22 96 01/23/22 14:56 93 H 01/23/22 08:19 36.7 C 105 H 22 117/70 96 01/23/22 07:54 83 01/23/22 07:12 97 H 20 98 Lab & Micro Results (Past 24 Hours) RBC 3.61 M/uL (4.2-5.4) L 01/23/22 WBC 15.05 K/uL (4.8-10.8) H 01/23/22 Hgb 10.9 g/dL (12.0-16.0) L 01/23/22 Hct 33.5 % (37-47) L 01/23/22 MCV 92.8 fL (80-100) 01/23/22 MCH 30.2 pg (25-34) 01/23/22 MCHC 32.5 g/dL (32-36) 01/23/22 RDW Standard Deviation 51.1 fL (36.4-46.3) H 01/23/22 RDW Coefficient of Variation 14.9 % (11.5-14.5) H 01/23/22 Plt Count 327 K/uL (130-400) 01/23/22 MPV 9.9 fL (7.4-10.4) 01/23/22 Neutrophils (%) (Auto) 93.7 % 01/23/22 Lymphocytes (%) (Auto) 3.0 % 01/23/22 Monocytes # (Auto) 0.44 K/uL (0.11-0.59) 01/23/22 Eosinophils # (Auto) 0.00 K/uL (0-0.5) 01/23/22 Immature Granulocyte % (Auto) 0.3 % 01/23/22 Neutrophils # (Auto) 14.10 K/uL (1.4-6.5) H 01/23/22 Lymphocytes # (Auto) 0.45 K/uL (1.2-3.4) L 01/23/22 Monocytes # (Auto) 0.44 K/uL (0.11-0.59) 01/23/22 Eosinophils # (Auto) 0.00 K/uL (0-0.5) 01/23/22 Basophils # (Auto) 0.01 K/uL (0-0.2) 01/23/22 Immature Granulocyte # (Auto) 0.05 K/uL (0.00-0.02) H 01/23/22 Na 137 mmol/L (136-145) 01/23/22 K 4.1 mmol/L (3.5-5.1) 01/23/22 Cl 101 mmol/L (98-107) 01/23/22 CO2 27 mmol/L (21-32) 01/23/22 Anion Gap 9 (3-11) 01/23/22 BUN 28 mg/dl (6-23) H 01/23/22 Creatinine 1.41 mg/dl (0.6-1.2) H 01/23/22 Estimated GFR ( Amer) 42.7 ml/min 01/23/22 Estimated GFR (Non-Af Amer) 36.9 ml/min 01/23/22 BUN/Creatinine Ratio 19.9 (10-20) 01/23/22 Glu 181 mg/dl (70-99(Fasting)) H 01/23/22 Ca 9.4 mg/dl (8.5-10.1) 01/23/22 Calcium Level 9.4 mg/dl (8.5-10.1) 01/23/22 07:15 01/23/22 Microbiology 01/22/22 07:37 Gram Stain - Final Sputum, Expectorated Sputum Culture - Preliminary Light normal fercho present, final report to follow. 01/21/22 19:18 Aerobic Blood Culture - Preliminary Blood No growth in Aerobic bottle after 24 hours. Anaerobic Blood Culture - Preliminary No growth in Anaerobic bottle after 24 hours. 01/21/22 19:18 Aerobic Blood Culture - Preliminary Blood No growth in Aerobic bottle after 24 hours. Anaerobic Blood Culture - Preliminary No growth in Anaerobic bottle after 24 hours. Diagnostic Findings (Past 24 Hours) Aspiration 01/23/22 00:00 US FNA lymph node CLINICAL HISTORY: Pathologic left supraclavicular adenopathy. COMPARISON STUDY: Chest CT 01/21/2022. PROCEDURE: The risks, benefits, and alternatives to the procedure were discussed with the patient. Written informed consent was obtained. The patient was placed supine in ultrasound, and one of the pathologically enlarged left supraclavicular lymph nodes was localized by ultrasound and selected for fine needle aspiration. The left neck was prepped and draped in the usual sterile fashion. The nodule was aspirated under ultrasound guidance with 4 passes utilizing 25-gauge needles. Specimens were reviewed by the pathologist in real- time and deemed adequate for diagnosis. The patient tolerated the procedure well and left the department in satisfactory condition. IMPRESSION: Completed fine-needle aspiration of pathologically enlarged left supraclavicular lymph node. ACT 112: Negative or not required by law. The above report was generated using voice recognition software. It may contain grammatical, syntax or spelling errors. Electronically signed by: Jp Greenwood M.D. 01/23/2022 11:45 AM I & O Totals 24 Hours 01/22/22 01/23/22 01/24/22 06:59 06:59 06:59 Intake Total 700 / 700 1790 / 1790 870 / 870 Output Total 200 / 200 2 / 2 Balance 500 / 500 1788 / 1788 870 / 870 Cumulative 01/21/22 18:43 thru 01/23/22 14:14 Intake Total 3360 Output Total 202 Balance 3158 RT Ventilator Mngmt (Last Documented) Ventilator Ordered Settings Respiratory Rate 22 01/23/22 15:14 Ventilator - PT Measurements Respiratory Rate 22 PG Care Time/CCT Total # of Minutes Spent Total Time Spent with Patient: Total time spent is greater than 50% in coordination of care (as documented) at patient's floor/unit and/or counseling patient:20 minutes Coding Level of Care Code 70135 Subseq Hosp Care Lvl 2 Diagnoses Pneumonia J18.9 Laterality: bilateral Lung location: lower lobe of lung Pneumonia type: due to unspecified organism Abnormal CT scan, chest R93.89 Hypoxia R09.02 Interstitial lung disease J84.9 GERD (gastroesophageal reflux disease) K21.9
[2022-01-23] MEDS ORDERED: LANTUS PER UNIT CHARGE SQ SCH (21:00)
[2022-01-23] MEDS: ROSUVASTATIN CALCIUM 20 MG TAB PO SCH (21:01)
[2022-01-23] MEDS: VENLAFAXINE HCL XR 75 MG CAPXR PO SCH (21:02)
[2022-01-24] MEDS: INSULIN ASPART PER UNIT SC SCH ×4 (00:06→12:10)
[2022-01-24] MEDS: PIPERACILLIN/TAZOBACTAM 3.375 GM in DEXTROSE 5% 100 ML IV SCH (05:01)
[2022-01-24] MEDS ORDERED: ACETAMINOPHEN 325 MG TAB PO PRN (05:12)
[2022-01-24] MEDS: ALBUT/IPRATROP 3MG/0.5MG NEB 3 ML VIAL NEB SCH ×2 (07:17→10:58)
[2022-01-24] MEDS: ASPIRIN 81 MG ECTAB PO SCH (08:06)
[2022-01-24] MEDS: AZITHROMYCIN 250 MG TAB PO SCH (08:06)
[2022-01-24] MEDS: LORATADINE 10 MG TAB PO SCH (08:06)
[2022-01-24] MEDS: METOPROLOL SUCC 50MG EXT REL TAB PO SCH (08:06)
[2022-01-24] MEDS: PANTOprazole 40 MG TAB PO SCH (08:07)
[2022-01-24] MEDS: HEPARIN SOD 5,000 UNIT/0.5 ML VIAL SQ SCH (08:07)
[2022-01-24] MEDS: FLUTICASONE/VILANTEROL 100/25MCG 14 PUFFS/INHALER INH SCH (08:08)
[2022-01-24] MEDS ORDERED: predniSONE 10 MG TABLET PO SCH (09:00)
[2022-01-24] MEDS ORDERED: LANTUS PER UNIT CHARGE SQ SCH (09:00)
[2022-01-24 09:46] LABS: Hematocrit (blood only) 34.7 % (37-47); Immature Granulocytes # (auto) 0.07 K/uL (0.00-0.02); Immature Granulocytes % (auto) 0.4 %; Lymphocytes # (auto) 1.31 K/uL (1.2-3.4); Lymphocytes % (auto) 7.3 %; Mean Corpuscular Hemoglobin 29.6 pg (25-34); Mean Corpuscular Hgb Conc 31.7 g/dL (32-36); Mean Corpuscular Volume 93.3 fL (80-100); Mean Platelet Volume 10.1 fL (7.4-10.4); Monocytes % (auto) 7.3 %; Neutrophils # (auto) 15.24 K/uL (1.4-6.5); Platelet Count 426 K/uL (130-400); RDW Coefficient of Variation 15.6 % (11.5-14.5); RDW Standard Deviation 52.7 fL (36.4-46.3); Red Blood Count 3.72 M/uL (4.2-5.4); White Blood Count 17.92 K/uL (4.8-10.8)
--- NOTE | 2022-01-24 10:03 | Hospitalist Progress Note ---
Date of Service January 24, 2022 Assessment & Plan (1) Pneumonia: Plan: Right lower lobe. Treated with azithromycin and Zosyn. Much improved. Home on oral azithromycin (2) Type 2 diabetes mellitus with microalbuminuria: Plan: ADA diet. Sliding scale coverage. Continue home medications (3) Interstitial lung disease: Plan: Parenteral steroids while hospitalized. Prednisone taper at discharge (4) Adenopathy: Plan: Left supraclavicular node biopsy completed January 23. Pathology pending (5) Respiratory failure, [id number]: Plan: She is now back on her baseline oxygen requirement per nasal cannula. Plan: Discharge to home today, January 24 Admission and Anticipated Discharge Date Admission Date: January 21, 2022 Subjective Alert and oriented. She had the left supraclavicular node biopsy done yesterd ay, January 23. Pathology is pending. Respiratory status is stable. She will be discharged home today, January 24, on azithromycin and a tapering dose of prednisone. She will follow-up with pulmonary medicine and her primary care provider on an outpatient basis for pathology review and further testing if needed. Review of Systems Review of Systems: Constitutional-no fever or chills ENT-no blurred vision, no double vision, no epistaxis, no sore throat Respiratory-no cough, no wheezing, no shortness of breath Cardiac-no palpitations, no chest pain, no syncope GI-no nausea, vomiting, diarrhea, melena, hematochezia -no urinary retention, no urinary incontinence, no dysuria, no hematuria Musculoskeletal-no joint pain, no muscle tenderness Skin-no bruising, no rashes, no pruritus Neuro-no isolated weakness, no paresthesia, no weakness Psych-no depression, no anxiety Physical Exam Physical Exam: General-alert and oriented x3, no fevers, no chills HEENT-head atraumatic and normocephalic, TMs intact bilaterally, pupils equal and reactive to light, extraocular muscles intact Neck-no lymphadenopathy or thyromegaly, trachea midline Chest-bilateral coarse inspiratory rales. No wheezing Cardiac-regular rate and rhythm, normal S1 and S2, no murmurs Abdomen-normal bowel sounds, nontender, no hepatosplenomegaly Extremities-no cyanosis, clubbing, or edema Neuro-cranial nerves II through XII intact, motor and sensory function within normal limits, strength symmetrical , no focal deficits Psych-normal affect, normal mood Results & Data Results & Data ([facility]) Vital Signs (Past 12 Hours) Vital Signs Temp Pulse Pulse Resp BP Pulse Ox 01/24/22 07:56 36.7 C 99 H 19 103/67 96 01/24/22 07:53 98 H 01/24/22 07:17 97 H 18 99 01/24/22 04:39 101 H 20 96 01/24/22 03:13 36.5 C 90 16 123/76 94 01/23/22 23:09 109 H 01/23/22 22:44 36.7 C 100 H 20 107/68 96 Laboratory Results 01/24/22 09:03 PG Care Time/CCT Total # of Minutes Spent Total Time Spent with Patient: Total time spent is greater than 50% in coordination of care (as documented) at patient's floor/unit and/or counseling patient: Coding Level of Care Code 42658 Subseq Hosp Care Lvl 3 Diagnoses Pneumonia J18.9 Laterality: bilateral Lung location: lower lobe of lung Pneumonia type: due to unspecified organism Type 2 diabetes mellitus with microalbuminuria E11.29; R80.9 Interstitial lung disease J84.9 Adenopathy R59.9 Respiratory failure, [id number] J96.20 (1) Pneumonia Laterality: bilateral Lung location: lower lobe of lung Pneumonia type: due to unspecified organism Qualified Code(s): J18.9 - Pneumonia, unspecified organism
--- NOTE | 2022-01-24 10:09 | Discharge Summary ---
Date of Service January 24, 2022 Admission HPI Per Admitting Provider 71yo F w/ hx of ILD, HTN, DM who presents with shortness of breath. She has a hx of ILD and follows with Dr. Em. She has been having a tough time with things and reports that she has been short of breath for weeks. She has been following closely with pulmonology and was last seen in October. They were trying to wean her steroids down, and she reports that while her shortness of breath has not changed dramatically in the last few weeks, as they have weaned down her steroids, she has less appetite, less energy, and is just generally feeling worse. She presented today because she finally felt she "couldn't take it" at home with how bad she was feeling. In addition, over the last few days, she has been having a more productive cough which is somewhat abnormal for her. She notes that a few times in the morning, she will get nauseated, cough really hard, and produce some thick, yellowish sputum which is new for her. She denies any fevers/chills, chest pain, abdominal pain, urinary symptoms, rashes, or LE swelling. She notes that she has been having some diarrhea recently. Principal Diagnosis Right lower lobe pneumonia, acute on chronic respiratory failure with hypoxia, left supraclavicular lymphadenopathy Discharge Exam General-alert and oriented x3, no fevers, no chills HEENT-head atraumatic and normocephalic, TMs intact bilaterally, pupils equal and reactive to light, extraocular muscles intact Neck-no lymphadenopathy or thyromegaly, trachea midline Chest-ilateral coarse inspiratory rales. No wheezing. C Cardiac-regular rate and rhythm, normal S1 and S2, no murmurs Abdomen-normal bowel sounds, nontender, no hepatosplenomegaly Extremities-no cyanosis, clubbing, or edema Neuro-cranial nerves II through XII intact, motor and sensory function within normal limits, strength symmetrical , no focal deficits Psych-normal affect, normal mood Discharge Data Allergies Allergy/AdvReac Type Severity Reaction Status Date / Time Sulfa (Sulfonamide Allergy Intermediate EYES Verified 01/21/22 19:05 Antibiotics) SWELLING/ITCHING Penicillins Allergy Mild Rash Verified 01/21/22 19:05 Consultations 01/21/22 20:56 ED Decision to Admit Stat 01/21/22 22:24 Consult Pulmonology Routine Ordered Studies 01/21/22 21:29 CT chest diagnostic wo con Urgent 01/23/22 US FNA lymph node Routine Hospital Course (1) Pneumonia: Right lower lobe. Treated with azithromycin and Zosyn. Much improved. Home on oral azithromycin (2) Type 2 diabetes mellitus with microalbuminuria: ADA diet. Sliding scale coverage. Continue home medications (3) Interstitial lung disease: Parenteral steroids while hospitalized. Prednisone taper at discharge (4) Adenopathy: Left supraclavicular node biopsy completed January 23. Pathology pending (5) Respiratory failure, [id number]: She is now back on her baseline oxygen requirement per nasal cannula. Discharge to home today, January 24 Total Time Total Time Spent Total Time Spent (In Minutes): 35 minutes Discharge Plan Discharge Items Patient Disposition: Home - Self-Care Reason For Visit: ILD FLARE +/- PNA Discharge Diagnosis: Right lower lobe pneumonia, acute on chronic respiratory failure with hypoxia, left supraclavicular lymphadenopathy Condition on Discharge: Fair Activity: Resume your previous activity Non-emergency contact: Primary Care Provider and Aluminum Container Tester Call non-emergency contact if: you have any medication questions Follow-up/Referrals: Vincenzo Bill MD [Primary Care Provider] - Diet: Carb Consistent or DM2 Addtl Attending Provider Instructions: Take Zithromax and prednisone as directed. Follow-up with primary care provider and pulmonology for review of biopsy results Pending Studies at Discharge: Yes Studies:: Biopsy results Stand-Alone Forms: My [facility] [employer] App, Smoking Cessation Medications and DC Order Prescriptions: New prednisone 10 mg Tablet See Rx Instructions .ROUTE .COMPLEX Qty: 30 RF: 0 azithromycin 250 mg Tablet 250 mg PO QAM Qty: 5 RF: 0 Continued losartan 100 mg tablet 100 mg PO DAILY Qty: 90 RF: 4 rosuvastatin [Crestor] 40 mg tablet 40 mg PO QPM Qty: 90 RF: 3 omeprazole 20 mg capsule,delayed release(DR/EC) 20 mg PO QAM Qty: 90 RF: 3 amlodipine 5 mg tablet 5 mg PO DAILY Qty: 90 RF: 3 metoprolol succinate 50 mg tablet extended release 24 hr 50 mg PO DAILY Qty: 90 RF: 3 venlafaxine [Effexor XR] 75 mg capsule,extended release 24hr 75 mg PO HS Qty: 90 RF: 3 aspirin [David Low Dose Aspirin] 81 mg tablet,delayed release (DR/EC) 81 mg PO DAILY Qty: 90 RF: 3 ascorbate calcium (vitamin C) 500 mg tablet 500 mg PO DAILY RF: 0 cholecalciferol (vitamin D3) 25 mcg (1,000 unit) capsule 2,000 units PO DAILY RF: 0 albuterol sulfate 2.5 mg /3 mL (0.083 %) solution for nebulization 2.5 mg INH Q4H PRN (Reason: shortness of breath or wheezing) Qty: 90 RF: 11 benzonatate 100 mg capsule 100 mg PO TID PRN (Reason: cough) Qty: 30 RF: 11 nystatin 100,000 unit/gram powder 1 applic topical BID Qty: 60 RF: 5 metformin 500 mg tablet 500 mg PO .COMPLEX Qty: 270 RF: 3 loratadine 10 mg tablet 10 mg PO DAILY Qty: 30 RF: 0 ProAir RespiClick 90 mcg/actuation aerosol powdr breath activated 2 inh INHALATION Q4H MDD 12 PRN (Reason: SHORT OF BREATH) Qty: 1 RF: 5 (DME) Portable Oxygen Misc See Rx Instructions .ROUTE .MEDSUPPLY Qty: 1 RF: 0 Breo Ellipta 100-25 mcg/dose blister with device 1 inh inhalation DAILY Qty: 60 RF: 2 prednisone 10 mg tablet 10 mg PO DAILY RF: 0 Discharge Orders: Discharge Order (Routine); Ordered 01/24/22 Ordered By: Lam Douglas Admission Data Admit Date/Time: 01/21/22 21:28 Attending Provider: Lam Douglas Admit Provider: Brando Milner Primary Care Provider: Vincenzo Bill Other Providers: Brando Milner ; Chris Ibanez Coding Level of Care Code D/C DAY MANAGEMENT >30 MINS Diagnoses Pneumonia J18.9 Laterality: bilateral Lung location: lower lobe of lung Pneumonia type: due to unspecified organism Type 2 diabetes mellitus with microalbuminuria E11.29; R80.9 Interstitial lung disease J84.9 Adenopathy R59.9 Respiratory failure, [id number] J96.20
[2022-01-24 10:19] LABS: Calcium 9.5 mg/dl (8.5-10.1); Creatinine Clr Calc Pharmacy 37.6 ml/min; Est GFR (African American) 38.4 ml/min; Est GFR (Non-African American) 33.1 ml/min; Potassium 3.5 mmol/L (3.5-5.1)
--- NOTE | 2022-01-30 15:41 | Coding Query ---
Metaststic squamous cell cancer, unknown primary PATHOLOGY To promote full compliance with coding requirements relating to patient care, physician participation is requested in all cases of package designer uncertainty. Please assist us with the question(s) below: Please review the Pathology report and please document any relevant diagnosis(es) below: Diagnosis(es): Thank you Pauly SHOEMAKER
== END 2022-01-24 12:42 | disposition home or self-care (01) | DRG 987 ==
LOC: ED 18:43 → 2W 21:28 → SUATTDRO 21:28 → 2W 21:54